=== PATIENT | female | born 1980 | race African-American/Black ===

== ENCOUNTER → 2016-11-06 12:11 | Outpatient (CLI) | payer MEDICAID ==
[2015-08-02 11:43] VITALS: BMI 35.1
[~2016-11-06 12:11] MED LIST: GABAPENTIN100 MG PO; LISINOPRIL10 MG PO; METHADONE 10 MG10 MG PO; OXYCONTIN15 MG PO
== END | disposition home or self-care (01) ==
LOC: D.US 12:00
DX: O98.519 Other viral diseases complicating pregnancy, unspecified trimester (principal); F11.90 Opioid use, unspecified, uncomplicated

== ENCOUNTER → 2017-01-04 14:30 | Outpatient (CLI) | payer MEDICAID ==
[2015-08-02 11:43] VITALS: BMI 35.1
== END | disposition home or self-care (01) ==
LOC: D.LDO 14:30
DX: O16.9 Unspecified maternal hypertension, unspecified trimester (principal)

== ENCOUNTER → 2017-01-08 12:53 | Outpatient (CLI) | payer MEDICAID ==
[2015-08-02 11:43] VITALS: BMI 35.1
== END | disposition home or self-care (01) ==
LOC: D.LDO 12:53
DX: Z34.90 Encounter for supervision of normal pregnancy, unspecified, unspecified trimester (principal)

== ENCOUNTER → 2017-01-11 08:51 | Outpatient (CLI) | payer MEDICAID ==
[2015-08-02 11:43] VITALS: BMI 35.1
== END | disposition home or self-care (01) ==
LOC: D.LDO 08:51
DX: O09.513 Supervision of elderly primigravida, third trimester (principal); Z3A.32 32 weeks gestation of pregnancy; R03.0 Elevated blood-pressure reading, without diagnosis of hypertension

== ENCOUNTER 2017-01-15 19:47 | Outpatient (CLI) | payer MEDICAID ==
[2015-08-02 11:43] VITALS: BMI 35.1
== END 2017-01-15 20:15 | disposition home or self-care (01) ==
LOC: D.LDO 19:47
DX: O16.3 Unspecified maternal hypertension, third trimester (principal); Z3A.32 32 weeks gestation of pregnancy

== ENCOUNTER 2017-01-23 15:26 | Outpatient (CLI) | payer MEDICAID ==
[2015-08-02 11:43] VITALS: BMI 35.1
[2017-01-23 18:50] LABS: UDS - AMPHET NEGATIVE QUAL (NEGATIVE); UDS - BARB NEGATIVE QUAL (NEGATIVE); UDS - BENZO NEGATIVE QUAL (NEGATIVE); UDS - COCAINE NEGATIVE QUAL (NEGATIVE); UDS - METH NEGATIVE QUAL (NEGATIVE); UDS - OPIATE NEGATIVE QUAL (NEGATIVE); UDS - PCP NEGATIVE QUAL (NEGATIVE); UDS - THC NEGATIVE QUAL (NEGATIVE)
== END 2017-01-23 19:23 | disposition home or self-care (01) ==
LOC: D.LDO 15:26
PROVIDERS: Obstetrics & Gynecology
DX: Z34.93 Encounter for supervision of normal pregnancy, unspecified, third trimester (principal); Z3A.34 34 weeks gestation of pregnancy

== ENCOUNTER → 2017-01-26 16:53 | Outpatient (CLI) | payer MEDICAID ==
[2015-08-02 11:43] VITALS: BMI 35.1
== END | disposition home or self-care (01) ==
LOC: D.LDO 16:53
DX: O13.3 Gestational [pregnancy-induced] hypertension without significant proteinuria, third trimester (principal); Z3A.34 34 weeks gestation of pregnancy

== ENCOUNTER → 2017-01-31 16:14 | Outpatient (CLI) | payer MEDICAID ==
[2015-08-02 11:43] VITALS: BMI 35.1
== END | disposition home or self-care (01) ==
LOC: D.LDO 16:14
DX: O13.3 Gestational [pregnancy-induced] hypertension without significant proteinuria, third trimester (principal); Z3A.35 35 weeks gestation of pregnancy

== ENCOUNTER → 2017-02-02 15:06 | Outpatient (CLI) | payer MEDICAID ==
[2015-08-02 11:43] VITALS: BMI 35.1
== END | disposition home or self-care (01) ==
LOC: D.LDO 15:06
DX: O09.513 Supervision of elderly primigravida, third trimester (principal); Z3A.35 35 weeks gestation of pregnancy; O16.9 Unspecified maternal hypertension, unspecified trimester

== ENCOUNTER → 2017-02-07 16:28 | Outpatient (CLI) | payer MEDICAID ==
[2015-08-02 11:43] VITALS: BMI 35.1
== END | disposition home or self-care (01) ==
LOC: D.LDO 16:28
DX: O13.3 Gestational [pregnancy-induced] hypertension without significant proteinuria, third trimester (principal); Z3A.36 36 weeks gestation of pregnancy

== ENCOUNTER → 2017-02-09 13:21 | Outpatient (CLI) | payer MEDICAID ==
[2015-08-02 11:43] VITALS: BMI 35.1
== END | disposition home or self-care (01) ==
LOC: D.LDO 13:21
DX: O13.3 Gestational [pregnancy-induced] hypertension without significant proteinuria, third trimester (principal); Z3A.36 36 weeks gestation of pregnancy

== ENCOUNTER → 2017-02-23 21:37 | Outpatient (CLI) | payer MEDICAID ==
[2015-08-02 11:43] VITALS: BMI 35.1
[~2017-02-23 21:37] MED LIST changes: +HYDROCODONE-APA1 TAB PO; +IBUPROFEN600 MG PO; -OXYCONTIN15 MG PO; +PRENATAL COMPLE1 TAB PO; +ROXICODONE15 MG PO; +TUMS500 MG PO
== END | disposition home or self-care (01) ==
LOC: D.LDO 21:37
DX: O16.3 Unspecified maternal hypertension, third trimester (principal); Z3A.38 38 weeks gestation of pregnancy

== ENCOUNTER 2017-03-01 07:35 | Inpatient (IN) | payer MEDICAID ==
[~2017-03-01 07:35] MED LIST changes: -HYDROCODONE-APA1 TAB PO; -IBUPROFEN600 MG PO; -PRENATAL COMPLE1 TAB PO; -TUMS500 MG PO
[2017-03-01 08:20] VITALS: BP 108/63; BMI 34.0
[2017-03-01 09:09] LABS: HEMOGLOBIN 13.1 g/dL (12-16); MCH 31.4 pg (26.0-34.0); MCHC 34.5 g/dL (31.0-37.0); MCV 91.1 fL (80.0-100.0); MEAN PLATELET VOLUME 9.6 fL (7.4-10.4); RBC 4.17 10x6/uL (4.00-5.40); RDW 13.6 % (11.5-14.5); WBC 12.2 10x3/uL (4.8-10.8)
--- NOTE | 2017-03-01 11:48 | NUR ---
FUNDUS FIRM, MIDLINE, AT UMBILLICUS. MINIMAL LOCHIA
[2017-03-01 12:07] VITALS: BP 130/71
--- NOTE | 2017-03-01 12:25 | NUR ---
PT WAS RECEIVED FROM RECOVERY ROOM, POST OP C- SECTION. PT IS AWAKE AND ALERT- LUNGS CLEAR. HEART- RRR. ABD- SOFT, TENDER, FUNDUS FIRM. LOW TRANSVERSE INCISION WITH PRIMAPORE DRESSING. CLEAN AND DRY. ICE BAG PLACED OVER GOWN AT INCISION. EXT- MINIMAL EDEMA. IV PATENT R HAND. DILAUDID TELE TECH INITIATED. PT INSTRUCTIONS GIVEN. SCD'S ON AND INITIATED. BED IS LOW. SIDE RAILS UP X 2 AND CALL LIGHT IN REACH.
--- NOTE | 2017-03-01 13:45 | NUR ---
BREAST FEEDING IN PROGRESS. PT APPEARS LOVING/CARING TOWARDS HER BABY. CORRECT LATCH NOTED. TEACING DONE.
--- NOTE | 2017-03-01 14:10 | NUR ---
PT IS RESTING IN BED. SHE HAS GOOD URINE OUTPUT. IV PATENT. DILAUDID COMMERCIAL CREDIT OFFICER. BED IS LOW, SIDE RAILS UP X 2 AND CALL LIGHT IN REACH.
--- NOTE | 2017-03-01 15:05 | NUR ---
PT IS SITTING UP IN BED. HOLDING BABY. SHE IS DRINKING PLENTY OF FLUIDS. OUT PUT IS GOOD. BED IS LOW, SIDE RAILS UP X 2 AND CALL LIGHT IN REACH.
--- NOTE | 2017-03-01 17:00 | NUR ---
ISIS SAYS CHANNEL ERROR. RESET WITH HART. THEN IT DID IT AGAIN . REMOVED AND GOT ANOTHER ONE AND THIS ONE IS WORKING.
--- NOTE | 2017-03-01 17:21 | NUR ---
PT IS BABY AT THIS TIME. SHE OFFERS NO COMPLAINTS. HER OLDER DAUGHTER IS AT BEDSIDE.
[2017-03-01 18:14] LABS: BASOPHILS 0 % (0-2); EOSINOPHILS 0.4 % (0-7); HEMATOCRIT 35.4 % (36.0-48.0); HEMOGLOBIN 11.8 g/dL (12-16); IMMATURE GRANULOCYTES 0.4 % (0-5); LYMPHOCYTES 14.8 % (15-50); MCH 31.6 pg (26.0-34.0); MCHC 33.3 g/dL (31.0-37.0); MEAN PLATELET VOLUME 10.3 fL (7.4-10.4); MONOCYTES 3.2 % (2-11); NEUTROPHILS 81.2 % (40-80); RBC 3.74 10x6/uL (4.00-5.40)
[2017-03-01 18:16] LABS: MCV 94.7 fL (80.0-100.0); PLATELET COUNT 312 10x3/uL (130-400); WBC 18.6 10x3/uL (4.8-10.8)
[2017-03-01 19:35] VITALS: BP 113/65
--- NOTE | 2017-03-01 19:35 | NUR ---
ASSESSMENT PER FLOW SHEET, VS OBTAINED, IV IN RIGHT HAND INTACT WITH NO REDNESS OR EDEMA INFUSING NS WITH PITOCIN AT 125 ML/HR, DILAUDID WIRING TECHNICIAN TO DELIVER 0.2MG/10MINS PER PTS DEMAND FOR PAIN CONTROL, PT RATES INC PAIN 5/10, STATES "IT'S TOLERABLE", PT INST AND VERBALIZES UNDERSTANDING OF WIRING TECHNICIAN, FF, ML, U/1, LITE BLEEDING NOTED, BERTHA PAD CHANGED, BIKINI INC WITH SMALL DRESSING CDI WITH NO DRAINAGE NOTED, ICE PACK TO INC, CERON CATH INTACT, DRAINING DARK YELLOW URINE, PT INST ON TO DRINK PLENTY OF FLUIDS, FRESH H20 SERVED, SCD'S ON AND WORKING PROPERLY, PT DENIES FURTHER NEEDS, FOB HOLDING BABY, FAMILY AT BEDSIDE, TRASH REMOVED
--- NOTE | 2017-03-01 19:53 | NUR ---
NEW BAG OF NS WITH PITOCIN HUNG IV PER MD ORDERS, SEE EMAR
--- NOTE | 2017-03-01 20:28 | NUR ---
PT AWAKE, VISITING, DENIES NEEDS AT THIS TIME
[2017-03-01] MEDS ORDERED: TUMS500 MG PO (21:27)
[2017-03-01] MEDS ORDERED: PRENATAL COMPLE1 TAB PO (21:27)
--- NOTE | 2017-03-01 21:28 | NUR ---
PT INKER AND OPAQUER LIGHT, PT REQUESTED AND PROVIDED FRESH ICE PACK, TOWELS, AND WASH CLOTHS FOR OLDEST DAUGHTER, PT DENIES FURTHER NEEDS
--- NOTE | 2017-03-01 22:17 | NUR ---
PT BABY, DENIES NEEDS AT THIS TIME
[2017-03-01 23:30] VITALS: BP 120/72
--- NOTE | 2017-03-01 23:30 | NUR ---
PT AWAKE, JUST FINISHED CHANGING BABIES DIAPER, VS OBTAINED, BLUE CHUX AND BERTHA PAD CHANGED, LITE BLEEDING NOTED, CERON CATH EMPTIED, RATES INC PAIN 08/28, REQUESTED AND SERVED FRESH H20, BABY BACK TO PT'S ARMS, ASSISTED PT WITH , BABY LATCHED WELL, PT DENIES FURTHER NEEDS, DAUGHTER AT BEDSIDE
--- NOTE | 2017-03-02 00:27 | NUR ---
PT CAN RUNNER LIGHT, PT READY TO GET SOME REST, BABY TO NSY VIA OPEN CRIB CART PER THIS RN, PT DENIES FURTHER NEEDS
--- NOTE | 2017-03-02 00:33 | NUR ---
PT VIROLOGIST LIGHT, REQUESTED AND PROVIDED ICE PACK
--- NOTE | 2017-03-02 00:40 | NUR ---
PT WASH HOUSE SUPERVISOR LIGHT, STATES "I THINK I NEED TO BE CLEANED UP", LITE-MOD BLEEDING NOTED, NO CLOTS, FF, ML, U/1, BERTHA CARE DONE WITH WET WARM WASH CLOTHS, BLUE CHUX AND BERTHA PAD CHANGED, PT DENIES FURTHER NEEDS, DAUGHTER AT BEDSIDE
--- NOTE | 2017-03-02 01:13 | NUR ---
PT AWAKE, STATES "I'M TRYING TO SLEEP, BUT I'M HAVING A DIFFICULT TIME, IT'S JUST HARD WHEN YOUR NOT IN YOUR OWN BED", PT DENIES NEEDS AT THIS TIME, DAUGHTER ASLEEP AT BEDSIDE
[2017-03-02 03:34] VITALS: BP 114/60
--- NOTE | 2017-03-02 03:34 | NUR ---
PT , VS OBTAINED, I&O'S COLLECTED, RATES INC PAIN 09/27, INFORMED PT THAT I WILL DO BERTHA CARE WHEN SHE IS FINISHED , PT VERBALIZES UNDERSTANDING, NEW BAG OF NS WITH PITOCIN HUNG IV PER MD ORDERS, SEE EMAR, PT DENIES NEEDS AT THIS TIME
--- NOTE | 2017-03-02 05:15 | NUR ---
BABY TO NSY VIA OPEN CRIB CART PER THIS RN
--- NOTE | 2017-03-02 05:42 | NUR ---
PT EDUCATION PROGRAM ASSOCIATE LIGHT, REPORTS ICE PACK LEAKED AND FEELS LIKE BERTHA PAD NEEDS TO BE CHANGED, BERTHA PAD CHANGED, LITE BLEEDING WITH NO CLOTS NOTED, GOWN, TOP SHEET AND BLANKET CHANGED, FRESH ICE PACK, PT DENIES FURTHER NEEDS, DAUGHTER ASLEEP IN RECLINER
--- NOTE | 2017-03-02 06:37 | NUR ---
SHIFT REPORT TO ALYCE MAK RN
--- NOTE | 2017-03-02 06:59 | NUR ---
PT RINGS CL. RN TO BS. PT REQUESTS & RECEIVES ICE WATER. WILL RETURN FOR SHIFT ASSESSMENT.
[2017-03-02 07:02] LABS: BASOPHILS 0.1 % (0-2); EOSINOPHILS 0.4 % (0-7); HEMATOCRIT 37.1 % (36.0-48.0); IMMATURE GRANULOCYTES 0.3 % (0-5); MCH 31.6 pg (26.0-34.0); MEAN PLATELET VOLUME 10.1 fL (7.4-10.4); MONOCYTES 7.1 % (2-11); NEUTROPHILS 81.1 % (40-80); RBC 4.11 10x6/uL (4.00-5.40); RDW 13.4 % (11.5-14.5); WBC 15.8 10x3/uL (4.8-10.8)
[2017-03-02 07:10] LABS: MCV 90.3 fL (80.0-100.0); PLATELET COUNT 248 10x3/uL (130-400)
[2017-03-02 07:17] VITALS: BP 133/75
--- NOTE | 2017-03-02 07:17 | NUR ---
RCVD PT FROM Pj HUSSEIN RN. PT LYING IN LT LATERAL TILT WITH PILLOW AT BACK FOR SUPPORT. PT AAOX3. PT RATES PAIN 5/10 CURRENTLY, BUT REPORTS THIS TOLERABLE. BREATH SOUNDS CLEAR & UNLABORED X2. BOWEL SOUNDS ACTIVE X4. LARGE DRESSING OVER BLI C/D/I. FUNDUS FIRM, ML, U/U. MODERATE LOCHIA RUBRA NOTED TO PERIPAD. PADS CHANGED AT THIS TIME WITH NO CLOTS NOTED ON PERIPAD. PIV NOTED TO R HAND PATENT WITH NO ERYTHEMA OR EDEMA NOTED TO SITE. NS WITH 20 U PITOCIN INFUSING @ 125ML/HR. CERON CATH DRAINING TO GRAVITY WITH 350 ML CLEAR YELLOW URINE EMPTIED FROM UROMETER. PT DENIES FURTHER NEEDS AT THIS TIME. BED LOW, WHEELS LOCKED, CL IN REACH, SIDE RAILS UP X2.
[2017-03-02 08:21] LABS: RAPID PLASMA REAGIN Non Reactive (Non Reactive)
--- NOTE | 2017-03-02 09:15 | NUR ---
CERON CATH D/C'D WITH CATH TIP INTACT. 350ML CLEAR YELLOW URINE NOTED IN UROMETER AT THIS TIME. PT TOLERATED WELL. SCALPER OPERATOR OFF AND PIV SL AT THIS TIME. PT DENIES FURTHER NEEDS. ADV PT TO RING CL WHEN FEELS URGE TO VOID. PT VERBALIZED UNDERSTANDING AND DENIES FURTHER NEEDS.
--- NOTE | 2017-03-02 09:50 | NUR ---
PT RINGS CL. RN TO BEDSIDE. PT REPORTS URGE TO VOID. PT ASSISTED TO SITTING ON SIDE OF BED WITH NO C/O DIZZINESS OR LIGHTHEADEDNESS. PT ASSISTED TO STANDING AT BEDSIDE AND AMB PER SELF TO BATHROOM WITH MINIMAL ASSISTANCE. PT VOIDS LARGE AMOUNT ON COMMODE. PANTIES AND PADS PROVIDED AT THIS TIME. LINENS ON BED CHANGED. PT REQUESTS MOTRIN AND NORCO AT THIS TIME. WILL RETURN WITH SAME. PT DENIES FURTHER NEEDS. WILL CONT TO MONITOR.
--- NOTE | 2017-03-02 10:01 | NUR ---
NORCO 10/325 X1 TAB AND MOTRIN 600MG X1 TAB GIVEN PER ORDERS AND PT REQUEST. SEE EMAR. I.S. PROVIDED AND TEACHING WITH RETURN DEMONSTRATION PULLING 2000ML. PT DENIES FURTHER NEEDS AT THIS TIME. WILL CONT TO MONITOR.
--- NOTE | 2017-03-02 10:35 | NUR ---
PT AMB TO NURSE DESK RATES PAIN 3/10 AND TOLERABLE. PT REPORTS WILL AMB AROUND UNIT. DENIES FURTHER NEEDS.
[2017-03-02 11:37] VITALS: BP 110/80
--- NOTE | 2017-03-02 11:37 | NUR ---
DR HUSSEIN IN ROOM DISCUSSING CARE WITH PT. VS ASSESSED WHEN MD FINISHES. VSS. PT RATES PAIN 4/10 AT THIS TIME AND TOLERABLE. FAMILY IN ROOM WITH INFANT UP IN ARMS. PT DENIES FURTHER NEEDS.
--- NOTE | 2017-03-02 12:59 | NUR ---
PT RINGS CL. RN TO BEDSIDE. PT INQUIRES IF PAIN MEDICATION IS AVAILABLE. ADV PT NORCO WILL BE IN 1 HR. PT VERBALIZED UNDERSTANDING AND DENIES FURTHER NEEDS.
--- NOTE | 2017-03-02 13:16 | NUR ---
ROUNDS MADE. PT SITTING UP IN BED VISITING WITH FAMILY IN ROOM. DENIES NEEDS AT THIS TIME. WILL CONT. TO MONITOR.
--- NOTE | 2017-03-02 14:13 | NUR ---
PT REPORTS SHE IS READY TO TAKE A SHOWER. BED LINENS CHANGED AT THIS TIME, TOWELS AND WASH CLOTHES PROVIDED. PT DENIES FURTHER NEEDS AT THIS TIME.
--- NOTE | 2017-03-02 14:28 | NUR ---
INFANT TRANSPORTED VIA OPEN CRIB TO ROOM PER THIS RN. PT UP IN BATHROOM FINISHING SHOWER AT THIS TIME. FAMILY IN ROOM TO LOOK AFTER INFANT. PT DENIES NEEDS AT THIS TIME.
--- NOTE | 2017-03-02 15:02 | NUR ---
ROUNDS MADE. PT SITTING UP IN BED AT THIS TIME. DENIES PAIN OR NEEDS AT THIS TIME. WILL CONT TO MONITOR.
--- NOTE | 2017-03-02 15:58 | NUR ---
PT REQUESTS & RECEIVES NORCO 10/325MG X1 TAB AND MOTRIN 600MG X1 TAB FOR PAIN RATED 4/10 IN ABD AT THIS TIME. PT WITH INFANT UP IN ARMS AND FAMILY RESTING ON BEDSIDE CHAIR. PT DENIES FURTHER NEEDS. WILL CONT TO MONITOR.
[2017-03-02 15:59] VITALS: BP 123/82
--- NOTE | 2017-03-02 17:08 | NUR ---
PAIN REASSESSMENT COMPLETE. PT RATES PAIN 3/10 AND TOLERABLE. PT WISHES TO EAT MEAL TRAY BEFORE TRANSFERRING TO NEW ROOM. PT DENIES FURTHER NEEDS.
--- NOTE | 2017-03-02 17:52 | NUR ---
PT TRANSFERRED TO ROOM 1273. AMB TO UNIT PER SELF W/O DIFFICULTY. INFANT TRANSPORTED VIA OPEN CRIB PER THIS RN. STEADY GAIT NOTED. PT AND FAMILY ORIENTED TO ROOM. PT DENIES PAIN OR NEEDS AT THIS TIME.
[2017-03-02 19:31] VITALS: BP 136/74
--- NOTE | 2017-03-02 19:31 | NUR ---
RN TO BEDSIDE. PT SITTING IN HIGH FOWLERS POSITION BONDING WITH INFANT. SHIFT ASSESSMENT COMPLETED. VSS. FUNDUS FIRM U3 WITH SMALL AMT RUBRA LOCHIA, NO CLOTS. PT REPORTED THAT SHE PASSED A DIME SIZED CLOT EARILER AND REPORTED IT TO THE DAY RN. BOWEL SOUNDS PRESENT AND ACTIVE X4. PT STATES THAT SHE HAS ONLY PASSED FLATUS "A FEW TIMES" AND THAT SHE FEELS THE NEED TO PASS FLATUS CURRENTLY BUT SHE IS UNABLE TO DO SO. DR. DIAL NOTIFIED AND ORDERS REC'D FRO SIMETHCONE TAB 80 MG CHEW. INCISION CLEAN AND DRY, WELL APPROXIMATED, MARSHALL INTACT. PILLOW CASE PLACED BETWEEN ABD FOLD AND INCISION. PT INSTRUCTED ON DOING THIS AT HOME ALSO TO KEEP THE INCISION CLEAN AND DRY. PT INSTRUCTED ON S/S OF INFECTION AND POSSIBLE COMPLICATIONS OF INCISION TO REPORT FOLLOWING DISCHARGE WITH UNDERSTANDING VERBALIZED. PT ALSO INSTRUCTED ON PAIN MGMT AND LOCHIA AMT/DURATION/APPEARANCE DURING PP PEROID, VERBALIZED UNDERSTANDING. HER DAUGHTER AND S/O AT BEDSIDE, ATTENTIVE AND SUPPPORTIVE OF PT AND INFANT. ICE WATER GIVEN PER REQUEST. BED IN LOW POSITION WITH UPPER SIDE RAILS RAISED X2. CL AND PHONE WITHIN REACH. WILL CONT TO MONITOR AND ASSIST PRN.
--- NOTE | 2017-03-02 20:09 | NUR ---
MYLICON TAB GIVEN. PT INSTRUCTED ON USE AND FREQUENCY AND NEED TO ASK FOR MED. VERBALIZES UNDERSTANDING. INSTRUCTED ON POSSIBLE SIDE EFFECTS, VERBALIZES UNDERSTANDING. DENIES ADDITIONAL NEEDS AT THIS TIME. CURRENTLY. DENIES NEED FOR ASSISTANCE, STATES THAT SHE WILL CALL USING CL IF ASSISTANCE NEEDED. BED REMAINS IN LOW POSITION WITH UPPER SIDE RAILS RAISED X2. CL AND PHONE WITHIN REACH. WILL CONT TO MONITOR AND ASSIST PRN.
--- NOTE | 2017-03-02 20:13 | NUR ---
SANDWICH TRAY AND SODA PROVIDED PER PT REQUEST.
--- NOTE | 2017-03-02 20:49 | NUR ---
CALLED TO ROOM VIA CL. PAIN 5/10, ABD CRAMPING AND INCISIONAL BURNING. PT AT THIS TIME. NORCO GIVEN PER ORDER AND REQUEST. INSTRUCTED ON BEING NORMAL FOR CRAMPING TO INCREASE WITH BREAST FEEDING. PT STATES THAT SHE HAS NOTICED THAT. S/O AND HER DAUGHTER REMAIN AT BEDSIDE. DENIES ADDITIONAL NEEDS. BED IN LOW POSITION WITH UPPER SIDE RAILS RAISED X2. CL AND PHONE WITHIN REACH. WILL CONT MONITOR AND ASSIST PRN.
--- NOTE | 2017-03-02 21:18 | NUR ---
PT CALLS VIA CL. REQUESTS CHUXS BE CHANGED. PT STATES THAT PANTIES AND PAD SLID TO THE SIDE WHEN SHE GOT OUT OF BED. CHUX CHANGED. CLEAN DISPOSABLE PANTIES PROVIDED ALSO. DENIES ADDITIONAL NEEDS AT THIS TIME. WILL CONT TO MONITOR AND ASSIST PRN.
--- NOTE | 2017-03-02 21:40 | NUR ---
PAIN REASSESSMENT COMPLETED. PAIN 07/28, DENIES NEED FOR ADDITIONAL INTERVENTION. CONTINUES TO BREASTFEED . DENIES NEED AT THIS TIME. FAMILY MEMBER REMAINS AT BEDSIDE, SUPPORTIVE AND ATTENTATIVE TO PT. BED IN LOW POSITION WITH UPPER SIDE RAILS RAISED X2. CL AND PHONE WITHIN REACH. WILL CONT TO MONITOR AND ASSIST PRN.
--- NOTE | 2017-03-02 22:10 | NUR ---
RN TO BEDSIDE TO FLUSH PIV. PT REQUESTS THAT PIV BE REMOVED. STATES THAT IT IS AWKWARD AND GETS IN THE WAY WHEN SHE IS . LABS REVIEWED. PT ENCOURAGED TO INCREASE ORAL FLUIDS, VERBALIZES THAT SHE WILL THROUGHOUT THE NIGHT. PIV REMOVED. TIP INTACT. PRESSURE HELD TO SITE AND PRESSURE DRSG APPLIED. DENIES PAIN AND ADDITIONAL NEEDS AT THIS TIME. BED IN LOW POSITION WITH UPPER SIDE RAILS RAISED X2. CL AND PHONE WITHIN REACH. WILL CONT TO MONITOR AND ASSIST PRN.
--- NOTE | 2017-03-02 23:35 | NUR ---
RN TO BEDSIDE FOR ROUNDS. PT JUST COMPLETING DIAPER CHANGE AND PREPARING TO BREAST FEED . PT REQUESTS BREAST PUMP FOR USE WHEN STOPS NURSING. PUMP PROVIDED, INSTRUCTED TO NOTIFY RN WHEN SHE COMPLETES BREAST FEEDING FOR INSTRUCTION ON PUMP USE, VERBALIZES UNDERSTANDING. BED IN LOW POSITION WITH UPPER SIDE RAILS RAISED X2. CL AND PHONE WITHIN REACH. WILL CONT TO MONITOR AND ASSIST PRN.
[2017-03-03 00:47] VITALS: BP 123/70
--- NOTE | 2017-03-03 00:47 | NUR ---
RN TO BEDSIDE FOR ROUNDS. PT WITH INFANT TO RIGHT BREAST. VSS. FUNDUS FIRM U3 WITH SMALL AMT RUBRA LOCHIA, NO CLOTS PRESENT. PAIN 3/10, DENIES NEED FOR INTERVENTION AT THIS TIME. REPORTS THAT SHE HAS BEEN PASSING FLATUS SINCE TAKING MYLICON TAB. BED IN LOW POSITION WITH UPPER SIDE RAILS RAISED X2. CL AND PHONE WITHIN REACH. ICE WATER PROVIDED. WILL CONT TO MONITOR AND ASSIST PRN.
--- NOTE | 2017-03-03 02:08 | NUR ---
RN TO BEDSIDE WITH . ID BANDS MATCHED. PT REQUESTS PAIN MEDICATION. PAIN 5-6/10 ABD CRAMPING AND INCISIONAL BURNING AND STINGING. FAMILY MEMBER REMAINS AT BEDSIDE RESTING ON COUCH. DENIES ADDITIONAL NEEDS AT THIS TIME.
--- NOTE | 2017-03-03 02:16 | NUR ---
RN BACK TO BEDSIDE. NORCO AND MOTRIN GIVEN PER REQUEST. PT UPDATED ON WEIGHT AND AMT LOST SINCE , STATES THAT SHE WILL SPEAK WITH PEDS WHEN THEY ROUND TODAY REGARING WEIGHT LOSS. PT VERBALIZED FRUSTRATION AND IRRITATION AT THIS TIME. STATES THAT SHE KNOWS INFANT WAS GIVEN FORMULA WHILE IN NBN BECAUSE SHE HAS BURPED X2 AND HAS "BUBBLES COMING OUT OF HER MOUTH THAT ARE WHITE." REASSURED PT THAT HAD NOT BEEN GIVEN FORMULA TO MY KNOWLEDGE. PT ADAMENT THAT LAYLA FREDERICK NBN, COME TO ROOM TO SPEAK WITH HER. Chidi FABIAN RN NOTIFIED AND WILL COME TO ROOM TO SPEAK WITH PT REGARDING PLAN OF CARE AND REASSURE PT THAT INFANT HAD NOT BEEN GIVEN FORMULA. BED IN LOW POSITION WITH UPPER SIDE RAILS RAISED X2. CL AND PHONE WITHIN REACH. WILL CONT TO MONITOR AND ASSSIST PRN.
--- NOTE | 2017-03-03 02:32 | NUR ---
PT TO NBN WITH Chidi FABIAN RN AND FOR INFANT TO BE REWEIGHTED AT PT'S REQUEST. PT PRESENT IN NBN FOR REWEIGHT. PT CONTINUES TO REMAINS UPSET AND REPEATEDLY STATES THAT SHE WAS BEING LIED TO ABOUT HER INFANT BEING FED FORMULA. PT LEAVES NBN WITH INFANT IN OPEN CRIB AND RETURNS TO HER ROOM.
--- NOTE | 2017-03-03 02:57 | NUR ---
PT AMBULATORY IN [place], TEARFUL AT THIS TIME. ASKS FOR RN TO ASSIST HER TO NBN SO THAT SHE CAN APOLOGIZE TO Chidi FABIAN RN ABOUT ACCUSING HER OF GIVING INFANT FORMULA. PT TAKEN TO NBN. FRESH ICE WATER GIVEN. PT AMBULATORY BACK TO ROOM WITH RN. PT REQUESTS ASSISTANCE WITH USE OF BREAST PUMP. RN TO BEDSIDE WITH PT, DEMONSTRATED USE OF BREAST PUMP TO PT. PT PROVIDED REPEAT DEMONSTRATION OF PUMP USE. INSTRUCTED TO PUMP 20-30 MINUTE DURING EACH TIME PUMPING, VERBALIZED UNDERSTANDING.
--- NOTE | 2017-03-03 03:00 | NUR ---
PAIN REASSESSMENT COMPLETED. 06/30. WILL CONT TO MONITOR.
--- NOTE | 2017-03-03 03:42 | NUR ---
RN REMAINED AT BEDSIDE DURING PUMPING, PT PUMPED FULL 30 MINUTES. FUSSING AT THIS TIME. PT ASKS TO GIVE INFANT EBM AT THIS TIME. EDUCATED THAT EBM COULD BE GIVEN USING NIPPLE OR SYRINGE BUT WITH SMALL AMTS INFANTS OFTEN TAKE IN AIR. PT OPTED FOR SYRINGE, 1 ML EBM GIVEN TO INFANT VIA SYRINGE WITH PT WATCHING. FOLLOWING FEEDING OF EMB, PT REQUEST BOTTLE FOR STATING, "SHE'S JUST STARVING AND I DON'T WANT TO STARVE HER. SHE'S NOT GETTING MUCH FROM ME RIGHT NOW." EDUCATED PT ON SUPPLEMENTING WITH FORMULA, ALWAYS BREAST FEED OR FEED EBM FIRST THEN SUPPLEMENT WITH FORMULA WHEN NEEDED. VERBALIZED UNDERSTANDING AND DENIES QUESTIONS AT THIS TIME. BED IN LOW POSITION WITH UPPER SIDE RAILS RAISED X2. CL AND PHONE WITHIN REACH. WILL CONT TO MONITOR AND ASSIST PRN.
[2017-03-03 04:12] VITALS: BP 134/77
--- NOTE | 2017-03-03 04:12 | NUR ---
VSS. FUNDUS FIRM, U2 WITH SMALL AMT RUBRA LOCHIA, NO CLOTS. DENIES NEEDS AT THIS TIME. BONDING WITH . BED IN LOW POSITION WITH UPPER SIDE RAILS RAISED X2. CL AND PHONE WITHIN REACH. WILL CONT TO MONITOR AND ASSIST PRN.
--- NOTE | 2017-03-03 06:33 | NUR ---
RN TO BEDSIDE FOR ROUNDS. PT RESTING WITH EYES CLOSED IN SEMI FOWLERS POSITION ON BACK. RESPIRATIONS REGULAR AND UNLABORED, NO S/S OF DISTRESS NOTED. RESTING IN OPEN CRIB AT BEDSIDE. NO S/S OF DISTRESS NOTED. PT'S OLDER DAUGHTER RESTING ON COUCH AT BEDSIDE. BED IN LOW POSITION WITH UPPER SIDE RAILS RAISED X2. CL AND PHONE WITHIN REACH. WILL CONT TO MONITOR AND ASSIST PRN.
--- NOTE | 2017-03-03 07:20 | NUR ---
RECEIVED CARE OF THIS PATIENT. REPORT RECEIVED. SITTING UP IN BED WITH INFANT IN ARMS. SHIFT ASSESSMENT COMPLETED. RECENTLY RECEIVED NORCO FOR INCISIONAL PAIN 09/27. STILL RATES PAIN THE SAME. REQUESTED BOTTLES FOR INFANT "JUST IN CASE I NEED ONE". ANTICIPATE DC HOME TODAY. DECLINES FLU. CONSIDERING TDAP WOULD LIKE MORE INFORMATION. VISITOR SLEEPING ON COUCH. BREAKFAST SERVED. FRESH ICE WATER GIVEN. DISCUSSED BREASTCARE AND INCISION CARE TO PROTECT INCISION. VERBALIZED UNDERSTANDING. SIDE RAILS UP X 2, CALL LIGHT IN REACH. TO CALL IF ANYTHING IS NEEDED.
[2017-03-03 07:23] VITALS: BP 138/72
--- NOTE | 2017-03-03 08:20 | NUR ---
REQUESTED SOMETHING FOR GAS. MYLICON 80 MG GIVEN PO FOR RELIEF. ENCOURAGED OOB AND AMBULATION. FRESH COFFEE GIVEN. HAS WRITTEN TDAP INFORMATION. PLANS TO READ AND ASK QUESTIONS PRN. DISCUSSED AND MILK PRODUCTION. VERBALIZED UNDERSTANDING.
--- NOTE | 2017-03-03 10:16 | NUR ---
AMBULATING IN ROOM PREPARING TO TAKE SHOWER. IN NURSERY. LINENS STRAIGHTEN, WILL CHANGE IF PT NOT DC'D HOME. NO REQUESTS OR NEEDS AT THIS TIME. VISITOR SLEEPING ON COUCH.
--- NOTE | 2017-03-03 11:21 | NUR ---
REQUESTED RAMONA AND NATA FOR C/O 08/28 PAIN STATES "THEY WORK BETTER TOGETHER. " ALSO ANTICIPATING DISCHARGE HOME AND SAYS SHE WON'T BE ABLE TO GET HER PRESCRIPTION BEFORE GETTING HOME. SAYS SOMEONE WILL HAVE TO COME BACK AND PICK IT UP. HAS DECIDED TO WAIT ON RECEIVING TDAP. HAS WRITTEN INFORMATION. DC TEACHING COMPLETED INCLUDING POST OP CARE, PP DEPRESSION, S&S INFECTION, /BREAST CARE, BOTTLE FEEDING, CAR SAFETY, COMMUNITY RESOURCES, MEDICATION ADMINISTRATION AND FOLLOW-UP. DR DIAL VISITED. IN ARMS, SIDERAILS UP X 2, CALL LIGHT IN REACH. SHE WILL CONTACT SPOUSE TO COME PICK HER UP.
[2017-03-03] MEDS ORDERED: HYDROCODONE-APA1 TAB PO (11:37)
[2017-03-03] MEDS ORDERED: IBUPROFEN600 MG PO (11:39)
--- NOTE | 2017-03-03 12:47 | NUR ---
SITTING UP IN BED . COMPLETED DC TEACHING. VERBAL AND WRITTEN INFORMATION GIVEN ALONG WITH PRESCRIPTION. ALREADY HAD TWO WEEK APPOINTMENT SCHEDULED FOR HER. INSTRUCTED TO CALL SUNDAY TO SCHEDULE STAPLE REMOVAL APPOINTMENT FOR THIS WEEK. VERBALIZED UNDERSTANDING. INFANT HAS BEEN DC. WAITING ON FOB TO ARRIVE FOR RIDE HOME. INSTRUCTED SHE CAN GET DRESSED ANYTIME. SAYS PAIN IS BETTER AFTER MEDICATION. NOW 2/10 "MOSTLY CRAMPING BECAUSE I'M ". REGULAR DIET TRAY AT BEDSIDE. NO REQUESTS OR ADDITIONAL QUESTIONS. CALL LIGHT IN REACH.
--- NOTE | 2017-03-03 15:00 | NUR ---
DC'D VIA WHEELCHAIR TO CAR. IN CARSEAT. FOB PRESENT. ALL BELONGINGS REMOVED FROM ROOM. HAS WRITTEN INSTRUCTIONS AND PRESCRIPTIONS. UNDERSTANDS TO CALL SUNDAY TO SCHEDULE STAPLE REMOVAL THIS WEEK.
--- NOTE | 2017-03-16 16:58 | OP ---
PATIENT NAME: EDGAR GONG MEDICAL RECORD: [id number] :80 LOCATION:[id number] ADMISSION DATE:03/01/17 SURGEON: BERNARD LIVE MD DATE OF OPERATION: 03/01/2017 PREOPERATIVE DIAGNOSES: 1. Term intrauterine at 39 weeks. 2. History of previous section. 3. Chronic hypertension. POSTOPERATIVE DIAGNOSES: 1. Term intrauterine at 39 weeks. 2. History of previous section. 3. Chronic hypertension. 4. Bilateral polycystic ovaries. PROCEDURE: Repeat low transverse section and bilateral ovarian drilling. SURGEON: Bernard Live MD ANESTHESIA: Regional via spinal. INTRAVENOUS FLUIDS: Per anesthesia records. ESTIMATED BLOOD LOSS: 1000 cc. SPECIMENS: Placenta and cord for gases. FINDINGS: 1. Viable female infant. 2. Apgars 9 and 9. 3. Placenta delivered manually intact, 3-vessel cord noted. 4. Bilateral polycystic ovaries. PROCEDURE: The patient taken to the operating room where regional anesthesia was achieved without difficulty. The patient was then prepped and draped in normal sterile fashion in the dorsal supine position. Henson catheter had been placed and was draining freely. SCDs were on and functioning appropriately. After prepping and draping and testing, a repeat Pfannenstiel skin incision was made, extended downward to the underlying subcutaneous fat to level of the fascia, which was then excised in the midline scalpel. This was then extended bilaterally using the Crockett scissors. Superior and inferior aspects of the fascial incision were then grasped with Errol clamps times 2, tented upward, and sharply dissected from the underlying rectus muscle using the Crockett scissors and the Bovie cautery. The rectus muscles were then bluntly in the midline and the peritoneum entered sharply at the superior aspect of the incision. The peritoneum was then dissected using the Metzenbaum scissors. A bladder blade was placed into the pelvis. A bladder flap was created by excising the anterior leaf of the broad ligament from the lower uterine segment using the Metzenbaum scissors. A low transverse incision was made with a scalpel in the midline and extended superiorly and inferiorly using the Pelosi method. The vertex was found to be extended. Correction to head flexion was achieved using the Kiwi vacuum. Vacuum was applied on the occiput,1 application. Correction to head flexion and immediate delivery of the OPERATIVE REPORT [id number] EDGAR GONG vertex. No pop offs. No traction placed on the neck. Following delivery of the vertex, the vacuum was removed and the 's body was then delivered atraumatically. was bulb suctioned at delivery. Cord was clamped times 2, cut, and the infant was handed to awaiting nursery team. Cord was then obtained for gases. Placenta was then manually removed and the uterus exteriorized, cleared of all clots and debris. Uterine incision was repaired with 0 Vicryl in a running locked fashion times 2 with good hemostasis noted. The posterior cul-de-sac was then thoroughly irrigated. Attention was then turned to the bilateral ovaries where intraoperative discussion was had with the patient as far as the advantages proceeding with ovarian drilling to improve ovarian function. The patient gave oral consent and at this point, the needle tip Bovie cautery was used to drain 20+ ovarian follicles on each ovary. Good hemostasis was noted bilaterally. At this point, the uterus was replaced into the pelvis. The uterine incision was again checked for hemostasis. The anterior cul-de-sac was then thoroughly irrigated. Counts were correct times 2 and the fascia was repaired with 0 loop PDS times 1 and the skin was repaired with laura. The patient tolerated the procedure well, transferred to postanesthesia recovery stable without incident. TRANSINT:[id number] Voice Confirmation ID: [id number] DOCUMENT ID: [id number] BERNARD LIVE MD at 1658 CC: [id number] DICTATION DATE: 03/11/17708 FIBERGLASS BOAT MAKER: 03/11/17 0825 DIS IN 03/03/17 [facility] [address] [place] [address]
== END 2017-03-03 15:00 | disposition home or self-care (01) | DRG 766 ==
LOC: D.WS 07:35 → D.LD 07:35 → D.WS 14:03 → D.LD 03-02 18:30
PROVIDERS: ADMIT Obstetrics & Gynecology
PROC: 0U520ZZ Destruction of Bilateral Ovaries, Open Approach (ICD-10-PCS; 2017-03-01)
PROC: 10D00Z1 Extraction of Products of Conception, Low, Open Approach (ICD-10-PCS; principal; 2017-03-01 09:00)
DX: O10.92 Unspecified pre-existing hypertension complicating childbirth (principal); Z3A.39 39 weeks gestation of pregnancy; Z37.0 Single live birth; O34.219 Maternal care for unspecified type scar from previous cesarean delivery; E28.2 Polycystic ovarian syndrome; O99.344 Other mental disorders complicating childbirth; F41.9 Anxiety disorder, unspecified

== ENCOUNTER → 2018-10-15 10:46 | Outpatient (CLI) | payer MEDICAID ==
[~2018-10-15 10:46] MED LIST changes: +HYDROCODONE-APA1 TAB PO; +IBUPROFEN600 MG PO; +PRENATAL COMPLE1 TAB PO; +TUMS500 MG PO
[2018-10-15 11:22] LABS: ALT (SGPT) 21 U/L (10-68); CALC OSMOLALITY 275 mosm/kg (275-300); CALCIUM 8.5 mg/dL (8.5-10.1); CARBON DIOXIDE 23.2 mmol/L (21.0-32.0); CHLORIDE - SERUM 108 mmol/L (98-107); CREATININE - SERUM 0.5 mg/dL (0.6-1.3); GLUCOSE 77 mg/dL (74-106); POTASSIUM - SERUM 3.6 mmol/L (3.5-5.1); SODIUM 140 mmol/L (136-145); UREA NITROGEN 6 mg/dL (7-18); URIC ACID 4.1 mg/dL (2.6-7.2); eGFR NON AFRICAN AMERICAN > 90 mL/min (90-120)
[2018-10-15 11:29] LABS: HEMOGLOBIN 12.5 g/dL (12-16); MCH 30.2 pg (26.0-34.0); MCHC 34.7 g/dL (31.0-37.0); RBC 4.14 10x6/uL (4.00-5.40); RDW 13.4 % (11.5-14.5)
[2018-10-16 16:08] LABS: PROTEIN - URINE 21.8 mg/dL (0.0-11.9)
== END | disposition home or self-care (01) ==
LOC: D.LDO 10:46
PROVIDERS: ATTEND Obstetrics & Gynecology
DX: O10.913 Unspecified pre-existing hypertension complicating pregnancy, third trimester (principal); Z3A.35 35 weeks gestation of pregnancy

== ENCOUNTER → 2018-10-18 15:13 | Outpatient (CLI) | payer MEDICAID ==
[~2018-10-18 15:13] MED LIST changes: +DILAUDID4 MG PO; +DOLOPHINE HCL10 MG PO; +HYDROCODON-ACE1 EA10 PO; +NORMODYNE / TR100 MG PO; +NORMODYNE / TR200 MG PO
== END | disposition home or self-care (01) ==
LOC: D.LDO 15:13
PROVIDERS: ATTEND Obstetrics & Gynecology
DX: O13.3 Gestational [pregnancy-induced] hypertension without significant proteinuria, third trimester (principal); Z3A.35 35 weeks gestation of pregnancy

== ENCOUNTER → 2018-10-25 11:48 | Outpatient (CLI) | payer MEDICAID | END | disposition home or self-care (01) | LOC: D.LDO 11:48 | PROVIDERS: ATTEND Obstetrics & Gynecology | DX: O16.3 Unspecified maternal hypertension, third trimester (principal); Z3A.36 36 weeks gestation of pregnancy ==

== ENCOUNTER → 2018-10-28 19:38 | Outpatient (CLI) | payer MEDICAID | END | disposition home or self-care (01) | LOC: D.LDO 19:38 | PROVIDERS: ATTEND Obstetrics & Gynecology | DX: O16.3 Unspecified maternal hypertension, third trimester (principal); Z3A.37 37 weeks gestation of pregnancy ==

== ENCOUNTER → 2018-10-31 16:32 | Outpatient (CLI) | payer MEDICAID ==
[~2018-10-31 16:32] MED LIST changes: -DILAUDID4 MG PO; -HYDROCODON-ACE1 EA10 PO; -NORMODYNE / TR100 MG PO; -NORMODYNE / TR200 MG PO
== END | disposition home or self-care (01) ==
LOC: D.LDO 16:32
PROVIDERS: ATTEND Obstetrics & Gynecology
DX: O16.3 Unspecified maternal hypertension, third trimester (principal); Z3A.37 37 weeks gestation of pregnancy

== ENCOUNTER 2018-11-01 07:30 | Inpatient (IN) | payer MEDICAID ==
[~2018-11-01] VITALS: Ht 170.2 cm; Wt 93.0 kg
[~2018-11-01 07:30] MED LIST changes: -DOLOPHINE HCL10 MG PO
[2018-11-04] VITALS (9 sets, daily range): BP systolic 127–153; BP diastolic 66–103; Ht 170.2 cm; Wt 93.0 kg
[2018-11-04] MEDS ORDERED: DOLOPHINE HCL10 MG PO (11:11)
[2018-11-04 11:53] LABS: HEMATOCRIT 34.5 % (36.0-48.0); MCH 30.1 pg (26.0-34.0); MCHC 34.8 g/dL (31.0-37.0); MCV 86.5 fL (80.0-100.0); MEAN PLATELET VOLUME 9.8 fL (7.4-10.4); RBC 3.99 10x6/uL (4.00-5.40); RDW 13.2 % (11.5-14.5); WBC 11.1 10x3/uL (4.8-10.8)
--- NOTE | 2018-11-04 12:13 | NUR ---
PT'S NURSE PRESENT IN THE ROOM AT BEDSIDE ON ARRIVAL FOR ASSESSMENT. DR. CALLAHAN NOTIFIED AND REVIEWED PT'S BEHAVIOR AND ASSESSMENT RESULTS. PT IS LOW RISK PER DR. CALLAHAN. DR. CALLAHAN STATED TO GIVE RESOURCES TO PT AT TIME OF DISCHARGE. NO FURTHER ORDERS AT THIS TIME. RESOURCES REVIEWED WITH PT AND SHE VERBALIZED UNDERSTANDING.
--- NOTE | 2018-11-04 15:34 | NUR ---
BABY IS IN ROOM NURSING. PT IS IN STABLE CONDITION.
--- NOTE | 2018-11-04 16:16 | NUR ---
RECEIVED PT FROM VIA BED TO ROOM 1273. BED LOCKED AND PLACED IN LOW POSITION. VSS. HRRR WITHOUT AUDIBLE MURMUR. BBS CLEAR. BS HYPOACTIVE. ABDOMEN SOFT/NON-DISTENDED. FUNDUS FIRM AT U/U. RUBRA LOCHIA SCANT AMT. NO CLOTS NOTED. ABDOMINAL INCISION WITHOUT REDNESS, SWELLING OR DRAINAGE NOTED. DERMABOND NOTED. NEG HOMANS' SIGN. PPP. NEG HOMANS' SIGN. PPP. SCDS ON BLE. PUMP ON. CERON TO GRAVITY DRAINING CLEAR, YELLOW URINE. PT STATES PAIN OF "9" ON 0-10 PAIN SCALE. PIV OF NS WITH PITOCIN INFUSING AT 125 ML/HR. SITE CLEAR TO RIGHT FOREARM. SR UP X2. CALL LIGHT IN REACH. PT INSTRUCTED ON TCDB AND USE OF INCENTIVE SPIROMETER.
--- NOTE | 2018-11-04 17:10 | NUR ---
PT DAUGHTER AT DESK. STATES PT HURTING MORE. THIS NURSE TO ROOM. FUNDUS FIRM AT U/U. RUBRA LOCHIA MOD AMT. SEVERAL QUARTER SIZED CLOTS NOTED. PERICARE DONE. CHUX, PINK PAD AND PERIPAD CHANGED. PT MOVES WELL IN BED. ICE PACK CONTINUES TO INCISION. PT BONDING WITH AT THIS TIME.
[2018-11-04 17:11] LABS: UDS - AMPHET NEGATIVE QUAL (NEGATIVE); UDS - BARB NEGATIVE QUAL (NEGATIVE); UDS - BENZO NEGATIVE QUAL (NEGATIVE); UDS - COCAINE NEGATIVE QUAL (NEGATIVE); UDS - OPIATE POSITIVE QUAL (NEGATIVE); UDS - PCP NEGATIVE QUAL (NEGATIVE); UDS - THC NEGATIVE QUAL (NEGATIVE)
--- NOTE | 2018-11-04 17:19 | NUR ---
DILAUDID MATERIAL CONTROL SPECIALIST 0.4 MG BOLUS GIVEN AT THIS TIME.
--- NOTE | 2018-11-04 17:41 | NUR ---
PT STATES PAIN IMPROVING SINCE BOLUS DOSE.
--- NOTE | 2018-11-04 17:45 | NUR ---
DR SCHWARTZ NOTIFIED OF PT C/O PAIN, BOLUS GIVEN, BP'S. ORDERS RECEIVED.
--- NOTE | 2018-11-04 17:52 | NUR ---
PUMP PRESS OPERATOR DOSE INCREASED PER ORDERS. PT INSTRUCTED. VERBALIZES UNDERSTANDING.
--- NOTE | 2018-11-04 19:30 | NUR ---
PT IN WITH FAMILY AT THIS TIME. . NO DISTRESS NOTED. Shahbaz CURRY RN
[2018-11-04 20:07] LABS: HEMATOCRIT 33.3 % (36.0-48.0); HEMOGLOBIN 11.6 g/dL (12-16); MCH 29.9 pg (26.0-34.0); MCHC 34.8 g/dL (31.0-37.0); MCV 85.8 fL (80.0-100.0); MEAN PLATELET VOLUME 9.8 fL (7.4-10.4); PLATELET COUNT 257 10x3/uL (130-400); RBC 3.88 10x6/uL (4.00-5.40); RDW 13.2 % (11.5-14.5); WBC 20.6 10x3/uL (4.8-10.8)
--- NOTE | 2018-11-04 20:23 | NUR ---
PT REC'D IN BED AT THIS TIME. STATES PAIN IS A 5-6 ON PAIN SCALE AT THIS TIME. PT INSTRUCTED TO USE MODEL MAKER TO STAY IN CONTROL OF PAIN. PT ADMITS THAT IT HAS BEEN A WHILA SINCE SHE HAD USED HER MODEL MAKER. PT INSTRUCTED ON MODEL MAKER USE WITH UNDERSTANDING VERBALIZED. LUNGS CLEAR, BS TO UPPER QUADRANTS PRESENT. BILATERAL QUADRANTS HYPOACTIVE. PT DENIES NAUSEA/VOMITING. TOLERATING CLEAR LIQUIDS. FUNDUS FIRM AND MIDLINE AND AT U/1 WITH SMALL AMOUNT OF LOCHIA NOTED. PERICARE PROVIDED AT THIS TIME. CERON CATH PATENT WITH YELLOW URINE NOTED. SCDS IN PLACE AND FUNCTIONAL. IV OF NS+20 PITOCIN INFUSING TO RT FOREARM AT 125 ML/HR. SITE CLEAR AND PATENT. NO ACUTE DISTRESS NOTED. SIDERAIL UP FOR SAFETY X2. CALL LIGHT IN EASY REACH. Shahbaz CURRY RN
--- NOTE | 2018-11-04 20:56 | NUR ---
NEW SYRINGE OF DILAUDID UP AT THIS TIME. Shahbaz CURRY RN
[2018-11-04 21:22] LABS: EOSINOPHILS 2 % (0-7); LYMPHOCYTES 8 % (15-50); MONOCYTES 1 % (2-11); NEUTROPHILS 89 % (40-80)
[2018-11-04 21:23] LABS: PLATELET ESTIMATE NORMAL
--- NOTE | 2018-11-04 22:00 | NUR ---
ice pack replaced at this time per patient request. pt states that pain is approx 6 on pain scale. pt states that pain is "manageable." nikky treviño rn
--- NOTE | 2018-11-04 23:00 | NUR ---
PT GIVEN SECOND ICE PACK PER REQUEST TO HELP WITH PAIN. WILL CONTINUE TO MONITOR. Shahbaz CURRY RN
--- NOTE | 2018-11-05 00:08 | NUR ---
PT REC'D IN BED AT THIS TIME STATES PAIN IS APPROXMATELY A 4. STATES THE SECOND ICE PACK HELPED. PT HOLDING AND REQUESTS THAT INFANT BE PLACED IN CRIB. INFANT PLACED IN CRIB AND PT STATEST THAT SHE IS GOING TO TAKE A NAP. NO DISTRESS NOTED AT THIS TIME. Shahbaz CURRY, RN
--- NOTE | 2018-11-05 01:00 | NUR ---
NEW LAB DIRECTOR CARTRIDGE OF DILAUDUD UP AT THIS TIME. WILL CONTINUE TO MONITOR PAIN. Shahbaz CURRY RN
--- NOTE | 2018-11-05 01:20 | NUR ---
PT REQUESTING ICE PACKS TO BE REFILLED AT THIS TIME. ICE PACKS REFILLED AT THIS TIME. FOLETY CATH EMPTIED. 700 ML NOTED AT THIS TIME. Shahbaz CURRY RN
--- NOTE | 2018-11-05 02:10 | NUR ---
NEW BAG OF NS +20 PITOCIN UP AT 125 ML/HR. L PATRICIO RN
--- NOTE | 2018-11-05 03:10 | NUR ---
PT REQUESTING TO NURSERY AT THIS TIME. PT ALSO REQUESTING MORE WATER. PT TAKEN WATER AND TO NURSERY AT THIS TIME. Shahbaz CURRY RN
--- NOTE | 2018-11-05 03:45 | NUR ---
PT REQUESTING ICE PACKS REFILLED AT THIS TIME. PT RESTING INTERMITTENTLY. Shahbaz CURRY RN
[2018-11-05 04:15] VITALS: BP 143/81
--- NOTE | 2018-11-05 04:15 | NUR ---
VITAL SIGNS STABLE. FUNDUS FIRM AND MIDLINE WITH SCANT LOCHIA NOTED. SCDS REMAIN IN PLACE AND FUNCTIONAL. EMPTIED 400 FROM CERON CATH AT THIS TIME. PT STATES PAIN IS A 3 AT THIS TIME. NO DISTRESS NOTED AT THIS TIME. Shahbaz CURRY RN
--- NOTE | 2018-11-05 05:45 | NUR ---
LAB HERE FOR BLOOD DRAW. Shahbaz CURRY RN
--- NOTE | 2018-11-05 05:50 | NUR ---
CERON CATH EMPTIED THIS AM. EMPTIED 550 ML OF YELLOW URINE. RELACED ICE PACKS TO ABDOMEN AND REFILLED WATER AT THIS TIME. NO OTHER NEEDS VOICED AT THIS TIME. Shahbaz CURRY RN
--- NOTE | 2018-11-05 06:10 | NUR ---
PERICARE PROVIDED AT THIS TIME. MODERATE LOCHIA NOTED . NO ACUTE DISTRESS NOTED AT THIS TIME. Shahbaz CURRY RN
[2018-11-05 06:54] LABS: BASOPHILS 0.1 % (0-2); EOSINOPHILS 0.4 % (0-7); HEMATOCRIT 33.6 % (36.0-48.0); HEMOGLOBIN 11.8 g/dL (12-16); IMMATURE GRANULOCYTES 0.6 % (0-5); MCH 30.3 pg (26.0-34.0); MCHC 35.1 g/dL (31.0-37.0); MCV 86.4 fL (80.0-100.0); MONOCYTES 7.1 % (2-11); NEUTROPHILS 79.8 % (40-80); PLATELET COUNT 237 10x3/uL (130-400); RBC 3.89 10x6/uL (4.00-5.40); RDW 13.3 % (11.5-14.5); WBC 15.7 10x3/uL (4.8-10.8)
--- NOTE | 2018-11-05 07:15 | NUR ---
to room for am assessment, at this. Pt will call when finished. rates pain at 4/10 at this time.
[2018-11-05 07:21] LABS: RAPID PLASMA REAGIN Non Reactive (Non Reactive)
--- NOTE | 2018-11-05 08:30 | NUR ---
AM ASSESSMENT COMPLETED CHARTED ON FLOWSHEET. IV CHANGED TO SALINE LOCK. CERON CATH REMOVED PER PROTOCOL WITH CATH INTACT. PT ABLE TO MOVE SELF TO SITTING UP ON SIDE OF BED WITHOUT COMPLAINTS OF DIZZINESS OR NAUSEA. AMB TO BATHROOM WITH LITTLE ASSISTANCE, PRIVACY GIVEN BUT RN REMAINS IN ROOM. BED LINENS CHANGED WHILE PATIENT IS ATTEMPTING TO VOID. WARM WET WASH CLOTHS PROVIDED AND SHE IS ABLE TO DO BERTHA CARE, GOWN CHANGED. MESH BRIEFS AND BERTHA PAD ON. PT IS UNABLE TO VOID AT THIS TIME, REASSURED THAT NOT UNCOMMON AFTER CERON CATH REMOVEAL, REQUEST THAT SHE PLEASE CALL FOR NURSE IF SHE FEELS NEED TO VOID. AMB BACK TO BED AND POSITIONS SELF ON HER BACK AND SITTING TO EAT BREAKFAST. SIDE RAILS UP X 2 WITH CALL LIGHT IN REACH. INFANT IN CRIB AT BEDSIDE.
--- NOTE | 2018-11-05 09:42 | NUR ---
PT UP TO VOID WITH NO ASSISTANCE NEEDED.VOIDS 400ML WITHOUT COMPLAINT, BERTHA CARE PER SELF. RATES PAIN AT 3-4/10. INFANT IN CRIB AT BEDSIDE.
--- NOTE | 2018-11-05 11:00 | NUR ---
ROUNDS MADE, PT NOTED TO BE RESTING ON RIGHT SIDE WITH EYES CLOSED AND RESP EVEN. INFANT IN CRIB AT BEDSIDE. SIDE RAILS UP X 2 AND CALL LIGHT IN REACH. LEFT UNDISTURBED AT THIS TIME.
--- NOTE | 2018-11-05 13:00 | NUR ---
PT CALLS FOR NURSE, THIS RN TO BEDSIDE. SHE IS ASKING FOR PAIN MED, FOR ALL OVER PAIN THAT SHE RATES AT 6/10. EMAR CHECKED AND EXPLAINED THAT DUE FOR PAIN MED UNTIL 2PM. SHE STATES HER UNDERSTANDING AND DENIES ANY OTHER NEEDS AT THIS TIME. SPOUSE AND TODDLER DAUGHTER IN ROOM AT THIS TIME.
--- NOTE | 2018-11-05 14:13 | NUR ---
PT MEDICATED WITH DILAUDID 4MG PO FOR C/O PAIN 11/27 TO ABDOMEN. VS TAKEN, WNL. S/O AND YOUNG CHILD IN VISITING. INFANT IN ARMS OF FOB AT THIS TIME. CECILIO RICH
[2018-11-05 14:14] VITALS: BP 134/81
--- NOTE | 2018-11-05 16:45 | NUR ---
PT SITTING UP ON SIDE OF BED VISITING WITH FAMILY/FRIENDS. SHE C/O PAIN "ALL OVER" THAT SHE IS RATING AT 8/10. SHE STATES THAT "I CAN NOT EVEN HOLD MY BABY TO FEED HIM IT HURTS SO MUCH" DENIES PASSING GAS BUT ARGUES THAT IS NOT WHAT WOULD CAUSE HER DISCOMFORT. EXPLAINED THAT DR HALL WOULD BE NOTIFIED FOR ORDERS. QUESTION ABOUT PREVIOUS C/S AND MEDS TAKEN AFTERWARDS BUT SHE WAS UNABLE TO REMEMBER. ALSO QUESTIONED ABOUT ALLERGY TO NAPROXEN AND IF SHE COULD TAKE MOTRIN. PT STATES THAT SHE HAS NO PROBLEMS WITH MOTRIN AND WAS IN FACT TAKING 800MG DAILY PRIOR TO .
--- NOTE | 2018-11-05 17:08 | NUR ---
DR HALL NOTFIED OF PT COMPLAINT OF PAIN, REPORT THAT SHE TOOK PAIN MED AT 1400 WHICH WAS SCHEDULED DILAUDID 4MG PO. ORDERS RECIEVED FOR TORDAL 30MG IV EVERY 6HOURS. VERIFIED WITH PT FOR SECOND TIME THAT ALTHOUGH SHE REPORTS ALLERGY TO NAPROXEN SHE HAS TAKEN MOTRIN WITHOUT ANY SIDE EFFECTS. PLAN OF CARE GONE OVER AND SHE IS AGREEABLE.
--- NOTE | 2018-11-05 18:59 | NUR ---
PAIN MED GIVEN CHARTED ON EMAR. SALINE LOCK FLUSHED EASILY WITH 3ML NS. TORDAL 30MG DILUTED IN 3ML NS GIVEN IVP AND FLUSHED WITH 5ML NS. PT DENIES PAIN OR BURNING AT IV SITE.
--- NOTE | 2018-11-05 19:18 | NUR ---
PT AT THIS TIME. DENIES SUICIDAL IDEATION OR PREVIOUS SUIDICE ATTEMPTS. Shahbaz CURRY RN
[2018-11-05 19:58] VITALS: BP 148/77
--- NOTE | 2018-11-05 19:58 | NUR ---
PT REC'D IN BED AT THIS TIME. STATES PAIN IS A 3-4 AT THIS TIME. LUNGS CLEAR. BS PRESENT TO UPPER QUADRANTS. DECREASED TO BILATERAL LOWER QUADRANTS. LOW TRANSVERSE INCISION INTACT WITHOUT S/S OF INFECTION. PT WITH HEATING PAD TO ABDOMEN. ABDOMEN SOFTLY DISTENDED AT THIS TIME. PT DENIES FLATUS. PT INSTRUCTED TO AMBULATE X4 IN HALLWAYS THIS SHIFT. UNDERSTANDING VERBALIZED. VOIDING WITHOUT DIFFICULTY. SMALL LOCHIA NOTED. NO ACUTE DISTRESS NOTED AT THIS TIME. SIDERAIL UP FOR SAFETY. CALL LIGHT IN PT REACH. Shahbaz CURRY RN
--- NOTE | 2018-11-05 20:15 | NUR ---
PT UP IN HALLWAY AMBULATING AT THIS TIME. NO DISTRESS NOTED AT THIS TIME. Shahbaz CURRY RN
--- NOTE | 2018-11-05 22:36 | NUR ---
PT WATCHING TV AT THIS TIME STATES PAIN IS APPROXIMATELY A 4 ON PAIN SCALE. PT STATES THAT SHE IS COMFORTABLE AT THIS TIME. NO NEEDS VOICED. Shahbaz CURRY RN
--- NOTE | 2018-11-05 23:48 | NUR ---
PT MEDICATED AT THIS TIME WITH 4 MG OF DILAUDUD. WILL CONTINUE TO MONITOR PAIN LEVELS THIS SHIFT. Shahbaz CURRY RN
--- NOTE | 2018-11-06 00:35 | NUR ---
PT AMBULATING IN HALLWAY AT THIS TIME. PT DENIES FLATUS. Shahbaz CURRY RN
--- NOTE | 2018-11-06 00:46 | NUR ---
PT MEDICATED WITH TORADOL FOR PAIN LEVEL OF 6. PT UP TO SHOWER AT THIS TIME. Shahbaz CURRY RN
--- NOTE | 2018-11-06 01:50 | NUR ---
PT UP TO SIDE OF BED AT THIS TIME. STATES THAT PAIN IS A 3 AT THIS TIME. AT THIS TIME. NO DISTRESS NOTED. Shahbaz CURRY RN
--- NOTE | 2018-11-06 03:34 | NUR ---
PT MEDICATED FOR PAIN LEVEL OF 3 AT THIS TIME. WILL CONTINUE TO MONITOR. Shahbaz CURRY RN
--- NOTE | 2018-11-06 05:15 | NUR ---
PT AMBULATING IN [place] AT THIS TIME. DENIES ANY NEEDS. Shahbaz CURRY RN
[2018-11-06 07:45] VITALS: BP 145/74
--- NOTE | 2018-11-06 08:00 | NUR ---
am assessemnt completed as charted on flowsheet. bikini incision clean and dry, fundus firm at u/u midline with light bleeding noted to waldemar pad. pt denies clots with voids. rates pain at 3/10 at this time, denies needs. side rails up x 2 with call light in reach.
--- NOTE | 2018-11-06 08:15 | NUR ---
pt amb in halls with in crib. denies needs at this time.
--- NOTE | 2018-11-06 10:07 | NUR ---
pt provided with jello and large ice water per request. rates pain at 2/10 at this time. in crib at bedside. side rails up x 2 with call light in reach.
--- NOTE | 2018-11-06 11:30 | NUR ---
pain med given as charted on emar, rates pain at 6/10.
--- NOTE | 2018-11-06 12:35 | NUR ---
pain reassessment rates pain at 2/10 at this time, pt up and walking around room dressed in her own clothing and getting things ready for discharge. understands that Dr Live would round sometime today, but currently do not have a discharge order. denies any needs at this time.
--- NOTE | 2018-11-06 13:13 | NUR ---
PAIN MED GIVEN SCANNED TO EMAR. DR SCHWARTZ AT BEDSIDE, MD TALKING TO PATIENT ABOUT DISCHARGE AND PAIN MANAGEMENT.
--- NOTE | 2018-11-06 13:28 | NUR ---
DR SCHWARTZ BACK TO ROOM, PT IS GIVEN WRITTEN SCRIPT FOR DILAUDID 4MG #50. ALSO ADVISED BY MD TO TAKE TYLENOL 1000MG EVERY 6HRSS, EXPLAINS TO DO THIS SINCE DILAUDID DOES NOT HAVE ACETAMINOPHEN. PT STATES HER UNDERSTANDING AND DENIES ANY QUESTIONS.
--- NOTE | 2018-11-06 13:30 | NUR ---
SALINE LOCK REMOVED FROM RIGHT FOREARM WITH CATH INTACT. PT CALLING HER SPOUSE AND WILL LET NURSE KNOW WHEN READY FOR D/C PAPERS.
--- NOTE | 2018-11-06 15:00 | NUR ---
INFANT TAKEN TO NBN PER PT REQUEST THAT SHE WOULD LIKE TO POSSIBLE TAKE A NAP. LIGHTS DIMMED, SIDE RAILS UP X 2 WITH CALL LIGHT IN REACH.
[2018-11-06] MEDS ORDERED: DILAUDID4 MG PO (15:27)
--- NOTE | 2018-11-06 16:30 | NUR ---
VERBAL AND WRITTEN DISCHARGE ORDERS GONE OVER WITH PT. SHE IS ALSO PROVIDED WITH INSTRUCTIONS ABOUT CONTINUE CARE WHEN HOME. PT UNDERSTANDS TO S/S OF INFECTION AND WHAT TO DO IS SHE EXPERIENCES ANY OFF THESE. DENIES ANY QUESTIONS OR CONCERNS AT THIS TIME. NURSERY NURSE AT BEDSIDE TO GO OVER DISCHARGE. PT WILL CALL WHEN READY FOR WHEELCHAIR OUT.
--- NOTE | 2018-11-06 18:00 | NUR ---
pt calls out for wheelchair, taken to car with infant secured in carrier. home by private car.
== END 2018-11-06 18:00 | disposition home or self-care (01) | DRG 787 ==
LOC: D.LD 11-04 10:15 → D.SDCHOLD 11-04 12:00 → D.LD 11-06 18:00
PROVIDERS: ADMIT Obstetrics & Gynecology; ATTEND Obstetrics & Gynecology
PROC: 0U520ZZ Destruction of Bilateral Ovaries, Open Approach (ICD-10-PCS; 2018-11-04)
PROC: 10D00Z1 Extraction of Products of Conception, Low, Open Approach (ICD-10-PCS; principal; 2018-11-04 12:00)
DX: O34.211 Maternal care for low transverse scar from previous cesarean delivery (principal); O10.92 Unspecified pre-existing hypertension complicating childbirth; Z3A.38 38 weeks gestation of pregnancy; Z37.0 Single live birth; O99.284 Endocrine, nutritional and metabolic diseases complicating childbirth; E28.2 Polycystic ovarian syndrome

== ENCOUNTER 2018-11-15 10:27 | Inpatient (IN) | payer MEDICAID ==
[2018-11-15] VITALS (17 sets, daily range): BP systolic 116–198; BP diastolic 54–92; BMI 30.3
[~2018-11-15 10:27] MED LIST changes: +DILAUDID4 MG PO; +DOLOPHINE HCL10 MG PO
[2018-11-15] MEDS ORDERED: HYDROCODON-ACE1 EA10 PO (10:32)
[2018-11-15 11:00] LABS: BASOPHILS 0.4 % (0-2); EOSINOPHILS 3.8 % (0-7); HEMATOCRIT 34.7 % (36.0-48.0); IMMATURE GRANULOCYTES 0.2 % (0-5); LYMPHOCYTES 29.7 % (15-50); MCHC 34.6 g/dL (31.0-37.0); MCV 86.8 fL (80.0-100.0); MEAN PLATELET VOLUME 9.3 fL (7.4-10.4); MONOCYTES 5.9 % (2-11); PLATELET COUNT 384 10x3/uL (130-400); RDW 12.9 % (11.5-14.5); WBC 9.8 10x3/uL (4.8-10.8)
[2018-11-15 11:17] LABS: APTT 31.4 SECONDS (22.8-39.4); INR 0.99 (0.85-1.17); PROTIME 12.6 SECONDS (11.6-15.0)
[2018-11-15 11:43] LABS: CHLORIDE - SERUM 106 mmol/L (98-107); CREATINE KINASE 155 UL (21-215); POTASSIUM - SERUM 3.6 mmol/L (3.5-5.1); SODIUM 141 mmol/L (136-145)
[2018-11-15 11:44] LABS: ALBUMIN 3.4 g/dL (3.4-5.0); ALKALINE PHOSPHATASE 92 U/L (46-116); ALT (SGPT) 25 U/L (10-68); BILIRUBIN - TOTAL 0.31 mg/dL (0.2-1.3); PROTEIN - SERUM 7.2 g/dL (6.4-8.2)
[2018-11-15 11:45] LABS: CALC OSMOLALITY 279 mosm/kg (275-300); CALCIUM 8.9 mg/dL (8.5-10.1); CREATININE - SERUM 0.8 mg/dL (0.6-1.3); GLUCOSE 80 mg/dL (74-106); UREA NITROGEN 13 mg/dL (7-18); eGFR NON AFRICAN AMERICAN 85 mL/min (90-120)
[2018-11-15 12:10] LABS: CKMB 4.3 U/L (0.0-3.6)
[2018-11-15 12:30] LABS: APPEARANCE CLEAR (CLEAR); BILIRUBIN NEGATIVE (NEGATIVE); COLOR YELLOW (YELLOW); GLUCOSE NEGATIVE (NEGATIVE); KETONE NEGATIVE (NEGATIVE); NITRITE NEGATIVE (NEGATIVE); PROTEIN NEGATIVE (NEGATIVE); UROBILINOGEN NORMAL (NORMAL); WHITE CELLS - URINE 0-5 /hpf (0-5)
[2018-11-15 12:31] LABS: BACTERIA FEW /hpf (NONE SEEN); EPITHELIAL CELLS OCC /hpf (0-5); MUCUS <1+ /lpf (NONE SEEN); RED CELLS - URINE 0-5 /hpf (0-5)
--- NOTE | 2018-11-15 13:15 | NUR ---
PATIENT HAD ON 11/04 AND PRESENTS TODAY WITH C/O HEADACHE THAT IS NEW ONSET. DENIES N/V AND REPORTS THE HEADACHE IS WORSE WHEN SITTING DOWN OR LAYING DOWN AND EASES UP WHEN SHE STANDS UP. PT IS AAOX4 - PUPILS EQUAL AND REACTIVE - PT WALKS WITH STEADY GAIT - COMPUTER EQUIPMENT REPAIRER ARE EQUAL. LOWER EXTREMITIES BILATERAL EQUAL IN STRENGTH
--- NOTE | 2018-11-15 17:27 | NUR ---
see emar for all meds adm by this rn.
--- NOTE | 2018-11-15 18:15 | NUR ---
report called to dr. nixon, blood pressures post magnesium, and post hydralazine given to md. output of 1800 mls since arrival to ld given to md. pt states her headache is gone, reported to md. telephone orders received to start clear liquid diet, and advance as tolerated, report bp to md greater than 160/100, pt may have norco 10 mg one po q 4 hours chronic pain, pt may have brp without laughlin cath, continue i/o.
--- NOTE | 2018-11-15 19:21 | NUR ---
SHIFT ASSESSMENT DONE PER FLOWSHEET. C/O PAIN 3/, CONSTANT HEADACHE. REPORTS THAT SINCE ARRIVING ON L&D HEADACHE IS IMPROVED. I&O DONE. VSS. FUNDUS FIRM MIDLINE AND U3 WITH SCANT LOCHIA, SEROSANGUINEOUS IN COLOR. LOWER TRANSVERSE ABD INCISION WELL APPROXIMATED, NO DRAINAGE OR S/S OF INFECTION NOTED. PT REPORTS THAT SHE IS PASSING FLATUS AND VOIDING WITHOUT DIFFICULTY. BREATH SOUNDS CLEAR AND EQUAL BILATERAL, NO S/S DISTRESS NOTED. DTR'S 2+ WITH NO CLONUS, NEG ASHVIN'S SIGN. NO C/O OF N/V OR EPIGASTRIC PAIN. BED IN LOW POSITION WITH UPPER SIDE RAILS RAISED X2. CALL LIGHT AND PHONE WITHIN REACH. SANDWICH TRAY PROVIDED PER REQUEST. PLAN OF CARE DISCUSSED WITH PT, VERBALIZES UNDERSTANDING AND DENIES QUESTIONS.
--- NOTE | 2018-11-15 19:57 | NUR ---
C/O CONSTANT HEADACHE 08/28. REQUESTS NORCO PER ORDER AND GIVEN PER ORDER. EDUCATED ON MEDICATION, VERBALIZES UNDERSTANDING AND DENIES QUESTIONS. BED IN LOW POSITION WITH UPPER SIDE RAILS RAISED X2. CALL LIGHT AND PHONE WITHIN REACH. LIGHTS REMAIN OFF. WILL CONT TO MONITOR.
--- NOTE | 2018-11-15 20:18 | NUR ---
RESTING QUIETLY IN SEMI FOWLERS POSITION WATCHING TV. VSS. 2+ DTR'S WITHOUT CLONUS. 900 MLS CLEAR LIGHT YELLOW URINE EMPTIED FROM HAT. REPORTS NO CHANGE IN HEADACHE SINCE RECEIVING NORCO. BREATH SOUNDS REMAIN CLEAR AND EQUAL BILATERALLY, A&OX3. TRACE EDEMA TO BLE. INFANT RESTING IN OPEN CRIB AT BEDSIDE. ICE WATER PROVIDED. SCD'S DISCUSSED AND REFUSED BY PT. DENIES NEEDS AT THIS TIME. I&O DONE. FAMILY MEMBER REMAINS AT BEDSIDE. BED IN LOW POSITION WITH UPPER SIDE RAILS RAISED X2. CALL LIGHT AND PHONE WITHIN REACH. WILL CONTINUE TO MONITOR AND ASSIST PRN.
--- NOTE | 2018-11-15 20:45 | NUR ---
PAIN REASSESSMENT COMPLETED. REPORTS THAT PAIN "IS A LITTLE BETTER." 2-07/28, DENIES NEED FOR ADDITIONAL INTERVENTION. BED IN LOW POSITION WITH UPPER SIDE RAILS RAISED X2. CALL LIGHT AND PHONE WITHIN REACH. WILL CONTINUE TO MONITOR AND ASSIST PRN.
--- NOTE | 2018-11-15 21:22 | NUR ---
INFANT IN HIGH FOWLERS POSITION. VSS. DTR'S REMAIN 2+ WITHOUT CLONUS. 900 MLS CLEAR LIGHT YELLOW URINE EMPTIED FROM HAT. 104 MLS IV FLUIDS TAKEN IN AND 300 MLS PO. DENIES NEEDS AND PAIN AT THIS TIME. LIGHTS REMAIN OFF. BED IN LOW POSITION WITH UPPER SIDE RAILS RAISED X2. CALL LIGHT AND PHONE WITHIN REACH.
[2018-11-15 21:45] LABS: URIC ACID 6.9 mg/dL (2.6-7.2)
[2018-11-15 21:47] LABS: MAGNESIUM - SERUM 5.3 mg/dL (1.8-2.4)
--- NOTE | 2018-11-15 21:47 | NUR ---
JONO FROM LAB REPORTS MG LEVEL OF 5.3. NOT CRITICAL VALUE FOR PT. SHEET FILLED OUT AND PLACE IN CHART.
--- NOTE | 2018-11-15 22:20 | NUR ---
CHANGING INFANTS DIAPER. VSS. BREATH SOUNDS CLEAR AND EQUAL BILATERALLY. DRTS REMAIN 2+ WITHOUT CLONUS. NO OUTPUT NOTED. 600 MLS PO INTAKE WITH 100 MLS IV FLUIDS. LINES PROVIDED FOR PT'S FAMILY MEMBER WHO IS STAYING WITH HER. ICE WATER PROVIDED PER REQUEST. DENIES ADDITIONAL NEEDS. BED IN LOW POSITION WITH UPPER SIDE RAILS RAISED X2. CALL LIGHT AND PHONE WITHIN REACH. WILL CONTINUE TO MONITOR.
--- NOTE | 2018-11-15 23:16 | NUR ---
LAYING ON RIGHT SIDE RESTING WITH EYES CLOSED. INFANT RESTING QUIETLY IN OPEN CRIB. C/O CONSTANT HEADACHE 08/28. VSS. DTRS 2+ WITHOUT CLONUS. 2+ BLE EDEMA. 740 MLS PO INTAKE AND 88 MLS IV INTAKE. 900 MLS CLEAR LIGHT YELLOW URINE EMPTIED FROM HAT. ICE WATER PROVIDED. BREATH SOUNDS CLEAR AND EQUAL BILATERALLY. REQUEST PAIN MEDS WHEN DUE. BED IN LOW POSITION WITH UPPER SIDE RAILS RAISED X2. CALL LIGHT AND PHONE WITHIN REACH.
--- NOTE | 2018-11-15 23:25 | NUR ---
C/O HEADACHE 08/28, NORCO GIVEN PER ORDER AND PT REQUEST. DENIES ADDITIONAL NEEDS.
[2018-11-16] VITALS (27 sets, daily range): BP systolic 120–155; BP diastolic 62–90
--- NOTE | 2018-11-16 00:11 | NUR ---
LAYING ON LEFT SIDE, AROUSES TO VOICE. VSS. PAIN REASSESSMENT COMPLETED 06/30, DENIES NEED FOR INTERVENTION. DTR'S REMAIN 2+ WITHOUT CLONUS. I&O DONE. DENIES NEEDS. BED IN LOW POSITION WITH UPPER SIDE RAILS RAISED X2. CALL LIGHT AND PHONE WITHIN REACH. WILL CONTINUE TO MONITOR AND ASSIST PRN.
--- NOTE | 2018-11-16 02:09 | NUR ---
RESTING WITH EYES CLOSED LAYING ON RIGHT SIDE. AROUSES TO VOICE. VSS. DTR'S REMAIN 2+ WITHOUT CLONUS.I&O DONE. DENIES NEEDS. INFANT RESTING IN OPEN CRIB. BED IN LOW POSITION WITH UPPER SIDE RAILS RAISED X2. CALL LIGHT AND PHONE WITHIN REACH. WILL CONTINUE TO MONITOR AND ASSIST PRN.
--- NOTE | 2018-11-16 03:14 | NUR ---
PUTTING BACK IN OPEN CRIB. VSS. I&O DONE. DTR'S REMAINS 2+ WITHOUT CLONUS. C/O HEADACHE 08/28, NORCO GIVEN PER ORDER AND PT REQUEST. SANDWICH TRAY, ICE CREAM, ICE WATER PROVIDED. BREATH SOUNDS CLEAR AND EQUAL BILATERALLY. WILL CONTINUE TO MONITOR.
--- NOTE | 2018-11-16 04:17 | NUR ---
RESTING QUIETLY WITH EYES CLOSED LAYING ON RT SIDE. AROUSES TO VOICE. RESTING QUIETLY IN OPEN CRIB. VSS. I&O DONE. DTR'S REMAIN 2+ WITHOUT CLONUS. PAIN REASSESSMENT DONE, 06/30. DENIES NEEDS AT THIS TIME. FAMILY MEMBER RESTING ON COUCH AT BEDSIDE. BED IN LOW POSITION WITH UPPER SIDE RAILS RAISED X2. CALL LIGHT AND PHONE WITHIN REACH. WILL CONTINUE TO MONITOR.
--- NOTE | 2018-11-16 04:27 | NUR ---
SPOKE WITH PEDRO IN LAB REGARDING 0330 MG LEVEL. THIS RN OFFERED TO DRAW LEVEL, STATES THAT SHE HAS SOMEONE COMING TO DRAW LEVEL NOW.
--- NOTE | 2018-11-16 04:29 | NUR ---
LAB AT BEDSIDE.
--- NOTE | 2018-11-16 04:51 | NUR ---
MG LEVEL 6.5 PER PEDRO IN LAB. NOT CRITICAL VALUE FOR THIS PT. FORM COMPLETED WITH COPY PLACED IN CHART.
--- NOTE | 2018-11-16 05:20 | NUR ---
RESTING QUIETLY WITH EYES CLOSED ON RT SIDE, AROUSES TO VOICE. STATES SHE JUST COMPLETED . VSS. DTR'S REMAIN 2+ WITHOUT CLONUS. I&O DONE. ICE WATER PROVIDED. DENIES ADDITIONAL NEEDS. BED IN LOW POSITION WITH UPPER SIDE RAILS RAISED X2. CALL LIGHT AND PHONE WITHIN REACH. WILL CONTINUE TO MONITOR.
--- NOTE | 2018-11-16 06:20 | NUR ---
RESTING QUIETLY IN SEMI-FOWLERS POSITION WITH EYES CLOSED. AROUSES TO VOICE. RESTING QUIETLY IN OPEN CRIB. VSS. DTR'S REMAIN 2+ WITHOUT CLONUS. I&O DONE. DENIES NEEDS AT THIS TIME. BED IN LOW POSITION WITH UPPER SIDE RAILS RAISED X2. CALL LIGHT AND PHONE WITHIN REACH.
--- NOTE | 2018-11-16 07:22 | NUR ---
PT C/O THROBBING MOREIRA RATED 4-5/10 0N NUMERIC PAIN SCALE, NORCO GIVEN WITH SIPS WATER, REMAINS ON HOURLY INTAKE AND OUTPUT, BP CHECK, DTRS. DTRS 2+ BILATERALLY, NO CLONUS, NEGATIVE ASHVIN'S SIGN, RESP EVEN AND UNLABORED, HEART RRR, ABD SOFT AND NONTENDER, FUNDUS FIRM AT U/3 AND MIDLINE, PIV TO RIGHT BREAST CDI WITHOUT S/SX INFECTION OR INFILTRATION, 1/2 NS AND MAGNESIUM SULFATE INFUSING AT 50ML/HR EACH FOR TOTAL OF 100ML. HAS NOT GOTTEN UP TO VOID YET, PLANS TO DO SO AFTER INFANT WHO IS IN PT ARMS AT THIS TIME. NO VISUAL CHANGES, NO EPIGASTRIC PAIN, NO CHEST PAIN, NO LEG PAIN. CAP REFILL LESS THAN 3 SECS. C/O VAGINAL ITCHING, STATES MD ORDERED HER DIFLUCAN 150MG X DOSES AND ONLY RECEIVED ONE DOSE BEFORE ADMITTED, WOULD LIKE TO KNOW IF SHE CAN HAVE ADDITIONAL DOSE. WILL CONTACT .
--- NOTE | 2018-11-16 07:30 | NUR ---
DR SCHWARTZ TO L&D UNIT FOR ROUNDS, RELAYED PT INQUIRY REGARDING DIFLUCAN AND INQUIRED ABOUT REGULAR DIET, STATES OKAY FOR REGULAR DIET AND MAY HAVE DIFLUCAN 150MG X1 TODAY. WILL INPUT ORDERS
--- NOTE | 2018-11-16 08:28 | NUR ---
TODDLER IN ROOM WITH PT, PT SITTING UP IN BED EATING BREAKFAST ON HOURLY ROUNDS WITH BP SLIGHTLY ELEVATED 155/90. ENCOURAGED PT TO REMAIN RECUMBENT, REST, AND KEEP MINIMAL STIMULATION TO KEEP BP DECREASED. STATES PAIN NOW 2-3 ON NUMERIC PAIN SCALE AND IMPROVED. WILL MONITOR.
--- NOTE | 2018-11-16 09:22 | NUR ---
HOURLY ROUNDS COMPLETED, SEE MAG TX FLOWSHEET IN [employer] FOR FINDINGS. PAIN A 3/10 FOR MOREIRA. CALL LIGHT IN EASY REACH, LIGHTS DIMMED. LYING IN LEFT LATERAL POSITION.
--- NOTE | 2018-11-16 09:30 | NUR ---
DR SCHWARTZ TO SEE PT. VERBAL ORDER RECEIVED FOR SALINE NASAL SPRAY PRN. VERIFIED BY VORB.
--- NOTE | 2018-11-16 09:54 | NUR ---
MAG LEVEL 6.6, NOT CONSIDERED CRITICAL BUT THERAPEUTIC IN THIS PT. WILL MONITOR.
--- NOTE | 2018-11-16 10:20 | NUR ---
HOURLY ROUNDS COMPLETED, VSS, SEE MAG FLOWSHEET IN [facility] FOR FINDINGS. NAD NOTED, RESTING LEFT LATERAL POSITION, LIGHTS DIMMED, SIDE RAILS UP X2, BED IN LOW POSITION, BED BRAKES LOCKED.
--- NOTE | 2018-11-16 11:30 | NUR ---
ROUNDS COMPLETED, VSS, AFEBRILE, DTR 2+ BILATERALLY, NO CLONUS, RESP EVEN AND UNLABORED, C/O MOREIRA RATED 6/10 ON NUMERIC PAIN SCALE, NORCO PRN GIVEN WITH SIPS WATER. SEE MAGNESIUM FLOWSHEET IN [employer]. NO OTHER NEEDS VOICED AT THIS TIME, CALL LIGHT IN EASY REACH, CONTINUE TO MONITOR.
--- NOTE | 2018-11-16 12:20 | NUR ---
PT ROUSES TO ENTRY TO ROOM, LYING ON LEFT LATERAL POSITION, IN ARMS, PT STATES NO ONE ABLE TO CARE FOR INFANT SO SHE HAS TO KEEP IN ROOM WITH HER. EXPLAINED NEED TO MINIMIZE STIMULATION DUE TO INCREASED RISKS WITH PRE-ECLAMPSIA AND HYERTENSIVE CRISIS. MAGNESIUM SULFATE INFUSION CONTINUES TO PER MD ORDERS AND IVAC PUMP TO RIGHT BREAST PIV SITE. SEE MAGNESIUM SULFATE FLOWSHEET FOR ASSESSMENT COMPLETED HOURLY. LUNCH TRAY DELIVERED PER DIETARY AT THIS TIME, PT PAIN REASSESSMENT A 5 ON NUMERIC PAIN SCALE 0-10. CALL LIGHT IN EASY REACH, CONTINUE TO MONITOR.
--- NOTE | 2018-11-16 13:20 | NUR ---
PT ALERT AND ORIENTED WITH IN ARMS ON ENTRY TO ROOM, RESP EVEN AND UNLABORED, RATES PAIN 4/10 ON NUMERIC PAIN SCALE, SEE MAGNESIUM SULFATE FLOWSHEET FOR HOURLY UPDATES. CALL LIGHT IN EASY REACH, INFANT SWADDLED AND PLACED IN ROLLING CRIB ADJACENT TO PT BED, CONTINUE TO MONITOR.
--- NOTE | 2018-11-16 14:22 | NUR ---
VSS, RESP EVEN AND UNLABORED, NAD NOTED, SEE MAGNESIUM SULFATE FLOW SHEET, CALL LIGHT IN EASY REACH, RIGHT LATERAL POSITION. SIDE RAILS UPX2, BED IN LOW POSITION. CONTINUE TO MONITOR.
--- NOTE | 2018-11-16 15:23 | NUR ---
PT C/O MOREIRA, THROBBING RATED 5/10 ON NUMERIC PAIN SCALE, VSS, AFEBRILE, LEFT LATERAL POSITION, HOB ELEVATED 30 DEGREES, PRN PAIN MED GIVEN WITH SIPS WATER, SIDE RAILS UP X2, BED IN LOW POSITION, INFANT IN PT ARMS. CONTINUE TO MONITOR.
--- NOTE | 2018-11-16 16:24 | NUR ---
ROUNDS COMPLETED, VSS, SEE MAGNESIUM SULFATE FLOWSHEET IN [employer]. CUP OF ICE WATER AND LEMON NOOKSACK SODA PROVIDED UPON REQUEST. RATES PAIN 4/10 ON NUMERIC PAIN SCALE, CALL LIGHT IN EASY REACH, INFANT IN ARMS, REVIEWED RISKS WITH AND MAGNESIUM SULFATE ADMINISTRATION ON QUESTIONS ANSWERED, OPTIONS PROVIDED TO PT. ALSO REVIEWED PT BENEFITS OF THERAPY FOR 24 HOURS. PT STATES UNDERSTANDING. CONTINUE TO MONITOR.
--- NOTE | 2018-11-16 17:20 | NUR ---
ROUNDS COMPLETED, VSS. ALERT AND RESPONSIVE TO QUESTIONS, SPEECH CLEAR, NO N/V, RATES MOREIRA PAIN A 3/10 ON NUMERIC PAIN SCALE, RESP EVEN AND UNLABORED, PULSE OX 98% ON RA. CALL LIGHT IN EASY REACH, IN PT ARMS. CONTINUE TO MONITOR.
--- NOTE | 2018-11-16 17:29 | NUR ---
DR SCHWARTZ RETURNS PAGE, MAGNESIUM SULFATE WILL BE DISCONTINUED AT THIS TIME. CONTINUE TO MONITOR.
--- NOTE | 2018-11-16 18:15 | NUR ---
ROUNDS COMPLETED, PT RESTING IN LEFT LATERAL POSITION, HOB ELEVATED 30 DEGREES, NAD NOTED, DENIES MOREIRA, VISUAL DISTURBANCE, NAUSEA, EPIGASTRIC PAIN. RESP EVEN AND UNLABORED, CONTINUE TO MONITOR.
--- NOTE | 2018-11-16 19:01 | NUR ---
report given to oncoming shift.
--- NOTE | 2018-11-16 19:43 | NUR ---
SHIFT ASSESSMENT COMPLETED PER FLOWSHEET. REPORTS EPISODE OF VOMITING PRIOR TO RN ENTERING ROOM. APPROXIMATELY 250 MLS EMESIS NOTED IN JOSE [facility], DENIES BEING NAUSEATED PRIOR TO EVENT AND CURRENTLY. C/O CONSTANT HEADACHE, 09/27 AND REQUESTS [facility]CO, GIVEN PER REQUEST. REPORTS THAT SHE HAS CONSTANT HEADACHE AND IT NEVER GOES AWAY BUT THAT IT HAS STARTED TO INCREASE IN INTENSITY SINCE 1899. CURRENT B/P 154/89. BREATH SOUNDS CLEAR AND EQUAL BILATERALLY. NO EDEMA NOTED. DTR'S REMAIN 2+, NO CLONUS. REFUSES SCD'S. BED IN LOW POSITION WITH UPPER SIDE RAILS RAISED X2. CALL LIGHT AND PHONE WITHIN REACH. WILL CONTINUE TO MONITOR AND ASSIST PRN.
--- NOTE | 2018-11-16 19:54 | NUR ---
DR. SCHWARTZ PG TO REPORT VOMITING, C/O INCREASE IN HEADACHE, AND B/P READING.
--- NOTE | 2018-11-16 19:55 | NUR ---
CALL BACK TO UNIT REC'D FROM DR. SCHWARTZ, VOMITING, C/O INCREASE IN HEADACHE, CURRENT AND PAST B/P READINGS REPORTED, ASSESSMENT FINDINGS REPORTED. ORDERS REC'D TO BEGIN 100 MG PO LABATEOLOL BID AND GIVE FIRST DOSE NOW. PHARMACY NOT IN HOUSE, UNABLE TO OVERRIDE MED IN [place]YXIS, GLOBAL FIND DONE WITH MED AVAILABLE ON UNIT. 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
--- NOTE | 2018-11-16 20:16 | NUR ---
LABATEOLOL GIVEN PER ORDER. EDUCATED ON MED, VERBALIZES UNDERSTANDING AND DENIES QUESTIONS. PAIN REASSESSMENT COMPLETED, 07/28, STATES HEADACHE IS GETTING BETTER. FAMILY MEMBERS IN ROOM WITH PT TODDLER AT THIS TIME. LIGHTS OFF. PT HOLDING IN ARMS. BED IN LOW POSITION WITH UPPER SIDE RAILS RAISED X2. CALL LIGHT AND PHONE WITHIN REACH. WILL CONTINUE TO MONITOR.
--- NOTE | 2018-11-16 21:03 | NUR ---
CONVERSING WITH SPOUSE AT THIS TIME. STATES THAT SPOUSE IS GOING TO TAKE INFANT HOME TONIGHT SO SHE CAN REST. BREAST PUMP OFFERED, STATES THAT SHE HAS HER PERSONAL PUMP FROM HOME WITH HER. EDUCATED THAT BREAST MILK COULD BE LABELED AND STORED IN BREAST MILK REFRIGERATOR IN [facility], VERBALIZES UNDERSTANDING. SANDWICH TRAY, JELLO, AND APPLE JUICE PROVIDED PER REQUEST. DENIES N/V, HEADACHE AND VISION CHANGED. WILL CONTINUE TO MONITOR AND ASSIST PRN.
--- NOTE | 2018-11-16 22:23 | NUR ---
WATCHING TV LAYING IN SEMI-FOWLERS POSITION. B/P RECHECK DONE, 135/80. VERBALIZES THAT HEADACHE IS LESS INTENSE. INFANT RESTING IN OPEN CRIB. ENCOURAGED TO REST WHILE IS RESTING. VERBALIZES UNDERSTANDING. SANDWICH TRAY PROVIDED PER REQUEST.
--- NOTE | 2018-11-16 23:11 | NUR ---
VSS. DTR'S REMAIN 2+ WITHOUT CLONUS. C/O CONSTANT HEADACHE 4.5-5/10. NORCO GIVEN PER ORDER AND PT REQUEST. 800 MLS CLEAR LIGHT YELLOW URINE EMPTIED FROM HAT. JELLO AND ICE WATER PROVIDED PER REQUEST. DENIES ADDITIONAL NEEDS. BED IN LOW POSITION WITH UPPER SIDE RAILS RAISED X2. CALL LIGHT AND PHONE WITHIN REACH. RESTING IN OPEN CRIB. SPOUSE SLEEPING ON COUCH AT BEDSIDE. STATES THAT HER DECIDED TO STAY WITH HER BECAUSE SHE DIDN'T WANT TO BE AWAY FROM HER.
--- NOTE | 2018-11-16 23:45 | NUR ---
RESTING WITH EYES CLOSED LAYING ON RIGHT SIDE. RESPIRATIONS REGULAR AND UNLABORED, NO S/S OF DISTRESS NOTED. BED IN LOW POSITION WITH UPPER SIDE RAILS RAISED X2. INFANT RESTING IN OPEN CRIB AT BEDSIDE. SPOUSE RESTING ON COUCH AT BEDSIDE. WILL CONTINUE TO MONITOR. BED IN LOW POSITION WITH UPPER SIDE RIALS RAISED X2. CALL LIGHT AND PHONE WITHIN REACH.
--- NOTE | 2018-11-17 01:28 | NUR ---
ROUNDS MADE. LAYING ON LT SIDE RESTING WITH EYES CLOSED. RESPIRATIONS REGULAR AND UNLABORED, NO S/S OF DISTRESS NOTED. RESTING IN OPEN CRIB AT BEDSIDE. SIGNIFICANT OTHER RESTING ON COUCH AT BEDSIDE. BED IN LOW POSITION WITH UPPER SIDE RAILS RAISED X2. CALL LIGHT AND PHONE WITHIN REACH. WILL CONTINUE TO MONITOR.
[2018-11-17 03:28] VITALS: BP 131/79
--- NOTE | 2018-11-17 03:28 | NUR ---
GETTING OUT OF SHOWER. LINENS CHANGED. VSS. C/O PAIN 4/10, CONSTANT HEADACHE. NORCO GIVEN PER ORDER AND PT REQUEST. SPOUSE AT BEDSIDE, BOTTLE FEEDING . PT STATES THAT SHE IS GOING TO PUMP AND GO BACK TO SLEEP. ICE WATER PROVIDED. DENIES ADDITIONAL NEEDS. BED IN LOW POSITION WITH UPPER SIDE RAILS RAISED X2. CALL LIGHT AND PHONE WITHIN REACH. WILL CONTINUE TO MONITOR AND ASSIST PRN.
--- NOTE | 2018-11-17 04:03 | NUR ---
PAIN REASSESSMENT COMPLETED, 06/30. EBM TAKEN TO NBN FOR STORAGE PER PT REQUEST. JELLO AND ICE WATER PROVIDED. DENIES ADDITIONAL NEEDS. INFANT RESTING IN OPEN CRIB. SPOUSE RESTING ON COUCH. BED IN LOW POSITION WITH UPPER SIDE RAILS RAISED X2. CALL LIGHT AND PHONE WITHIN REACH. WILL CONTINUE TO MONITOR AND ASSIST PRN.
--- NOTE | 2018-11-17 05:51 | NUR ---
LAYING ON RIGHT SIDE RESTING WITH EYES CLOSED. RESPIRATIONS REGULAR AND UNLABORED, NO S/S OF DISTRESS NOTED. INFANT RESTING IN OPEN CRIB AT BEDSIDE. SIGNIFICANT OTHER RESTING ON COUCH AT BEDSIDE. BED IN LOW POSITION WITH UPPER SIDE RAILS RAISED X2. CALL LIGHT AND PHONE WITHIN REACH. WILL CONTINUE TO MONITOR AND ASSIST PRN.
[2018-11-17 07:17] VITALS: BP 134/75
--- NOTE | 2018-11-17 07:23 | NUR ---
AWAKE SITTING UP IN BED HOLDING . TALKATIVE. STATES THAT HAS A HEADACHE THAT COMES AND GOES BUT IS BETTER THAN YESTERDAY. DENIES NEEDS.
--- NOTE | 2018-11-17 07:25 | NUR ---
NO EDEMA IN FEET OR LEGS NOTED.
--- NOTE | 2018-11-17 07:26 | NUR ---
STATES WOULD LIKE PAIN MEDICATION IF IT IS TIME FOR HEADACHE. RATES PAIN 3-4 ON SCALE OF 0-10.
--- NOTE | 2018-11-17 08:40 | NUR ---
DR SCHWARTZ IN ROOM TO SEE PT.
--- NOTE | 2018-11-17 10:00 | NUR ---
ENTERED ROOM TO [employer] ON PT. STATES THAT SHE FEELS FINE BUT REPORTS AFTER TAKING LABETALOL SHE FEELS TINLING OF FACE- LAINE SCALP ,NOSE AND LIPS. INFORMED THAT WILL NOTIFY
[2018-11-17 10:15] VITALS: BP 137/79
--- NOTE | 2018-11-17 10:22 | NUR ---
SPOKE WITH DR SCHWARTZ ABOUT PT STATES THAT SHE HAS TINGLING OF FACE POST TAKING LABETALOL AND HE STATES THAT SHE TOLD HIM THAT WHEN HE SAW HER THIS MORNING. DR SCHWARTZ STATES THAT HE IS GOING TO HOLD ON GIVING HER LABETALOL WITH DISCHARGE BUT TO INFORM HER TO REPORT HEADACHE TO MD AND TO RTC TOMORROW OR NEXT DAY FOR BP CHECK.
[2018-11-17 11:40] VITALS: BP 117/65
--- NOTE | 2018-11-17 13:20 | NUR ---
IV CATH REMOVED FROM RT BREAST- CATH TIP INTACT. PRESSURE HELD AND BANDAIDE APPLIED. SITE WITHOUT REDNESS OR SWELLING. DISCHARGE INST VERBAL AND WRITTEN GIVEN. SEE ALSO PT INST SIGN SHEET.
--- NOTE | 2018-11-17 13:53 | NUR ---
DISCHARGED HOME WITH FAMILY. TO AUTO VIA W/C.
--- NOTE | 2018-12-02 12:59 | MORECARE ---
CASE MANAGEMENT DISCHARGE SUMMARY PATIENT: EDGAR GONG UNIT: [id number] ADM DATE: 11/15/18 AGE: 38 : 80 SEX: F ROOM/BED: D[facility]4 AUTHOR: BOB CONROY PHYSICIAN: REFERRING PHYSICIAN: PENNY SCHWARTZ MD DATE OF SERVICE: 12/02/18 Discharge Plan Patient Name: EDGAR GONG Facility: [facility]:[place] : 1980 Planned Disposition: Anticipated Discharge Date: Discharge Date: 11/17/2018 Expected LOS: Initial Reviewer: [email or web address] Initial Review Date: 11/15/2018 Generated: 12/02/18 1:58 pm Patient Name: EDGAR GONG Page 23834 at 1259 All edits/amendments must be made on the electronic document DICTATION DATE: 12/02/18 1258 PHP WEB DEVELOPER: CESILIA 12/02/18 1258 RPT#: [id number] DC DATE:11/17/18 STATUS: DIS IN [facility] [address] [place] [address] END OF REPORT
[2019-01-05 15:17] VITALS: BMI 30.3
--- NOTE | 2019-01-08 11:41 | DS ---
PATIENT:EDGAR GONG :80 MEDICAL RECORD: [id number] DISCHARGE SUMMARY ADMISSION DATE: 11/15/18 DISCHARGE DATE: 11/17/18 The patient was admitted on 11/15/2018. HISTORY OF PRESENT ILLNESS: The patient was postop day #12 status post repeat and tubal ligation. The patient was admitted with elevated blood pressures. The patient was seen in the ER and found to have elevated blood pressures and was sent to L&D with the presumption of preeclampsia. The patient reported headache at admission. PAST MEDICAL HISTORY: Significant for chronic hypertension, advanced maternal age, chronic back pain, chronic opiate use. The patient reports history of section times 2. History of depression and anxiety. PAST SURGICAL HISTORY: Significant for , T&A, laparoscopy, and D&C. ALLERGIES: NAPROXEN. FAMILY HISTORY: No significant family history known. SOCIAL HISTORY: No significant social history other than being a prior tobacco user. PHYSICAL EXAMINATION: VITAL SIGNS: On initial assessment, the patient was found to have elevated blood pressures upon admission in the severe range requiring IV hydralazine. The patient was started on magnesium sulfate for seizure prophylaxis with a presumptive diagnosis of preeclampsia. LUNGS: Clear to auscultation without evidence of pulmonary edema. ABDOMEN: Soft, appropriately tender incision site. Plan at that time was to keep the patient for 24 hours with magnesium prophylaxis, treatment of blood pressures to keep within normal range, continued pain control with the patient's normal home chronic pain regimen and monitoring of labs for HELLP syndrome. The patient's blood pressures improved. After given the hydralazine 5 mg and magnesium sulfate, blood pressure stabilized. Every 24 hours of magnesium sulfate was stopped. The patient was started on labetalol 100 mg t.i.d., which was keeping the blood pressures within a relatively good range. The patient was discharged home on hospital day #3 with instructions to follow up in 2 days in the office to monitor blood pressure and titrate blood pressure meds as needed. TRANSINT:[id number] Voice Confirmation ID: [id number] DOCUMENT ID: [id number] PENNY SCHWARTZ MD at 1141 CC: [id number] DICTATION DATE: 01/05/19 1521 RETAIL SALES PROFESSIONAL: 01/06/19 0010 DIS IN 11/17/18 [facility] [address] [place] [address]
== END 2018-11-17 13:54 | disposition home or self-care (01) | DRG 776 ==
LOC: D.ER 10:27 → D.LD 15:54
PROVIDERS: Family Medicine; ADMIT Obstetrics & Gynecology; ATTEND Obstetrics & Gynecology
DX: O14.95 Unspecified pre-eclampsia, complicating the puerperium (principal)

== ENCOUNTER 2019-01-07 09:15 | Emergency (ER) | payer MEDICAID ==
[~2019-01-07] VITALS: Ht 170.2 cm; Wt 82.3 kg
[~2019-01-07 09:15] MED LIST changes: +HYDROCODON-ACE1 EA10 PO
[2019-01-07 09:17] VITALS: Ht 170.2 cm; Wt 82.3 kg
[2019-01-07] MEDS ORDERED: NORMODYNE / TR100 MG PO (09:21)
[2019-01-07 09:56] LABS: APPEARANCE CLEAR (CLEAR); BILIRUBIN NEGATIVE (NEGATIVE); COLOR YELLOW (YELLOW); GLUCOSE NEGATIVE (NEGATIVE); KETONE NEGATIVE (NEGATIVE); NITRITE NEGATIVE (NEGATIVE); PROTEIN NEGATIVE (NEGATIVE); SPECIFIC GRAVITY 1.015 (1.005-1.020); UROBILINOGEN NORMAL (NORMAL)
[2019-01-07 10:11] LABS: BASOPHILS 0.3 % (0-2); EOSINOPHILS 3.2 % (0-7); HEMATOCRIT 39.7 % (36.0-48.0); HEMOGLOBIN 13.6 g/dL (12-16); IMMATURE GRANULOCYTES 0.3 % (0-5); LYMPHOCYTES 19.6 % (15-50); MCH 29.9 pg (26.0-34.0); MCHC 34.3 g/dL (31.0-37.0); MCV 87.3 fL (80.0-100.0); MEAN PLATELET VOLUME 9.8 fL (7.4-10.4); MONOCYTES 5.4 % (2-11); NEUTROPHILS 71.2 % (40-80); RBC 4.55 10x6/uL (4.00-5.40); RDW 13.6 % (11.5-14.5); WBC 11.8 10x3/uL (4.8-10.8)
[2019-01-07 10:30] LABS: PLATELET COUNT 220 10x3/uL (130-400)
[2019-01-07 10:38] LABS: ALBUMIN 3.8 g/dL (3.4-5.0); ALKALINE PHOSPHATASE 117 U/L (46-116); ALT (SGPT) 26 U/L (10-68); BILIRUBIN - TOTAL 0.56 mg/dL (0.2-1.3); CALC OSMOLALITY 283 mosm/kg (275-300); CALCIUM 8.7 mg/dL (8.5-10.1); CARBON DIOXIDE 25.8 mmol/L (21.0-32.0); CHLORIDE - SERUM 109 mmol/L (98-107); CREATININE - SERUM 0.8 mg/dL (0.6-1.3); GLUCOSE 93 mg/dL (74-106); POTASSIUM - SERUM 3.9 mmol/L (3.5-5.1); PROTEIN - SERUM 7.6 g/dL (6.4-8.2); SODIUM 143 mmol/L (136-145); UREA NITROGEN 10 mg/dL (7-18); eGFR NON AFRICAN AMERICAN 85 mL/min (90-120)
[2019-01-07 10:41] LABS: MAGNESIUM - SERUM 2.3 mg/dL (1.8-2.4); TROPONIN-I < 0.017 ng/mL (0.000-0.060)
[2019-01-07] MEDS ORDERED: NORMODYNE / TR200 MG PO (11:12)
[2019-01-07 11:40] VITALS: BP 167/89
== END 2019-01-07 11:41 | disposition home or self-care (01) ==
LOC: D.ER 09:15
PROVIDERS: Family Medicine
DX: O16.9 Unspecified maternal hypertension, unspecified trimester (principal); Z3A.00 Weeks of gestation of pregnancy not specified